=== PATIENT | male | born 1965 | race Caucasian/White ===

== ENCOUNTER 2025-02-07 08:44 | Outpatient (REF) | payer MEDICAID, SELFPAY ==
--- NOTE | ~2025-02-07 | XR_ITS ---
EXAMINATION: XR SHOULDER, RIGHT CLINICAL INFORMATION: right shoulder pain x the last 2 years. COMPARISON: None available. TECHNIQUE: AP external rotation, Grashey, scapular Y, and axillary views of the right shoulder. FINDINGS: No acute cortical disruption or malalignment. Small cyst greater tuberosity right humerus. There is no gross calcifications in the soft tissues. No lytic or blastic lesions. XR/XR shoulder RT min 2V IMPRESSION: Mild degenerative changes without acute fracture or dislocation. Electronically signed by: Carlo Tineo MD 02/07/2025 09:11 AM EDT
--- OUTSIDE RECORDS SUMMARY | 2025-02-07 08:58 | XMS_ITS | Clinical Summary ---
Author Organization [employer] Address [address] [facility] [address] [place] [address] Care Team Providers Care Kitchen Work Supervisor Name Role Phone Cruz Gerardo MD Primary Care Provider [phone] Allergies Active Allergy Reactions Criticality Noted Date Comments Codeine 10/20/2022 Medications Diclofenac Sodium 1 % gelIndications: Chronic right shoulder pain To apply to the affected area 3 times a day 100 g 09/04/2024 Active Active Problems Problem Noted Date Diagnosed Date Arthritis 09/04/2024 Umbilical hernia 09/04/2024 Immunizations Immunization Administration Dates Next Due Influenza injectable quadrivalent preservative f ree 04/16/2020 TD (adult), 2 Lf tetanus tox oid, preservative free, adsorbed 07/28/2005 Tdap 09/04/2024 Social History Tobacco Use Types Packs/Day Years Used Date Smoking Tobacco: Former Cigarettes Smokeless Tobacco: Current Tobacco Cessation:Ready to Q uit: Not Asked; Counseling Given: Not Answered Comments:Quit smoking 19 years ago. Smoked x 20 years 1 ppd. Alcohol Use Standard Drinks/Week Comments Yes 0 (1 standard drink = 0.6 oz pur e alcohol) Alcohol Answer Date Recorded Q1: How often do you have a drink containing alc ohol? 2 09/04/2024 Q2: How many drinks containi ng alcohol do you have on a typical day when you are drinking? 0 09/04/2024 Q3: How often do you have six or more drinks on one occasion? 2 09/04/2024 Depression Answer Date Recorded Patient Health Questionnaire-9 Score 2 09/04/2024 Patient Health Questionnaire-9 Score 2 09/04/2024 Last PHQ-9: Questionnaire Data Not on file 0 09/04/2024 Housing Stability Answer Date Recorded What is your housing situation today? I have pedro sing 08/28/[address] you li ve. Do you have problems with any of the following? None of the above 08/28/2024 Food Insecurity Answer Date Recorded Within the past 12 months, y ou worried that your food would run out before you got money to buy more: Never True 08/28/2024 Within the past 12 months,th e food you bought just didn't last and you didn't have enough money to get more: Never True 09/2024 Transportation Answer Date Recorded In the past 12 months, has l ack of transportation kept you from medical appts, meetings, work or from getting things needed for daily living? No 08/28/2024 Utilities Answer Date Recorded In the past 12 months, has t he electric, gas, oil or water company threatened to shut off services in your home? No 08/28/2024 Depression Answer Date Recorded Patient Health Questionnaire-2 Score 0 09/04/2024 Internet Access Answer Date Recorded Internet Access Q1 Yes 08/28/2024 Internet Access Q2 Not on file 08/28/2024 Sex and Gender Information Value Date Recorded Sex Assigned at Male 04/26/2022 10:21 AM EDT Legal Sex Male 10:21 AM EDT Gender Identity Male 04/26/2022 10:21 AM EDT Sexual Orientation Straight 04/26/2022 10 :21 AM EDT Last Filed Vital Signs Vital Sign Reading Time Taken Comments Blood Pressure 113/70 09/04/2024 1:42 PM EDT Pulse 81 09/04/2024 1:42 PM EDT Temperature 36.6 C (97.9 F) 09/04/2024 1:42 PM EDT Respiratory Rate 20 09/04/2024 1:42 PM EDT Oxygen Saturation 98% 09/04/2024 1:42 PM EDT Inhaled Oxygen Concentration - - Weight 91.2 kg (201 lb) 09/04/2024 1:42 PM EDT Height 179 cm (5' 10.47 ) 09/04/2024 1:42 PM EDT Body Mass Index 28.46 09/04/2024 1:42 PM EDT Plan of Treatment Health Maintenance Due Date Last Done Comments CT Colonography 1966 Colonoscopy 1966 Colorectal Cancer Screening 1966 Dental Oral Exam 1966 Dental Prophylaxis 1966 Dental X-Ray: Bitewings 1966 Dental X-Ray: Full Mouth 1966 FIT DNA/Cologuard 1966 FIT 1966 FOBT 1966 HIV Screening 1966 Lipid Panel 1966 Sigmoidoscopy 1966 Disability Screening 1966 Hepatitis C Screening 1984 Hepatitis A Vaccines (1 of 2 - Risk 2-dose series) 1985 Hepatitis B Vaccines (1 of 3 - 19+ 3-dose series) 1985 Zoster Vaccines (1 of 2) 2016 COVID-19 Vaccine (3 - 2023-2 5 season) 2024 02/21/2021, 01/31/2021 Influenza Vaccine (#1) 2025 04/16/2020 SDOH Screening 08/28/2025 08/28/2024 Alcohol/Substance Use Screening 09/04/2025 09/04/2024 Depression Screening 09/04/2025 09/04/2024, 09/04/2024 Pneumococcal Vaccine: 50+ Years (1 of 1 - PCV) 09/04/2025 Postponed from 2016 (Patient Refused) Tobacco Screening 09/04/2025 09/04/2024 DTaP/Tdap/Td Vaccines (2 - T d or Tdap) 09/04/2034 09/04/2024, 07/28/2005 RSV Patients and Patients Aged 60 years or older (1 - 1-dose 75+ series) 2041 Anal Pap Discontinued HIB Vaccines Aged Out No longer eligi ble based on patient's age to complete this topic HPV Vaccines Aged Out No longer eligi ble based on patient's age to complete this topic IPV Vaccines Aged Out No longer eligi ble based on patient's age to complete this topic Meningococcal B Vaccine Aged Out No l onger eligible based on patient's age to complete this topic Meningococcal Vaccine Aged Out No fani celi eligible based on patient's age to complete this topic RSV under 20 months Aged Out No longe r eligible based on patient's age to complete this topic Rotavirus Vaccines Aged Out No longer eligible based on patient's age to complete this topic Insurance [facility] C3 DENTAL-[facility] MEDICAID STAND ADULT Care Teams Kitchen Work Supervisor Relationship Specialty Start Date End Date Cruz Gerardo MD [address] [place] [address] PCP - General Internal Medicine 09/03/24
== END 2025-02-07 08:45 | disposition home or self-care (01) ==
LOC: HO.HHCX 08:44
PROVIDERS: PCP Internal Medicine; Visit Provider Internal Medicine
DX: M25.511 Pain in right shoulder (principal); G89.29 Other chronic pain
CPT/HCPCS: 73030

== ENCOUNTER → 2025-02-07 08:49 | Outpatient (BNV) | payer MEDICAID, SELFPAY | PROVIDERS: PCP Internal Medicine; Visit Provider Radiology Diagnostic Radiology | DX: M25.511 Pain in right shoulder (principal) | CPT/HCPCS: 73030 ==

== ENCOUNTER 2025-04-12 08:41 | Outpatient (REF) | payer MEDICAID, SELFPAY ==
--- OUTSIDE RECORDS SUMMARY | 2025-04-12 09:06 | XMS_ITS | Clinical Summary ---
Author Organization [facility] Address [address] [facility] [address] [place] [address] Care Team Providers Care Mds Manager Name Role Phone Cruz Gerardo MD Primary Care Provider Allergies Active Allergy Reactions Criticality Noted Date Comments Codeine 10/20/2022 Medications Diclofenac Sodium 1 % gelIndications: Chronic right shoulder pain To apply to the affected area 3 times a day 100 g 5 04/04/20 25 Discontinu ed(Therapy completed) Hospital, Clinic, or Other Facility Administered Medication Ordered Dose Route Frequency Start Date End Date Status triamcinolone acetonide (Kenalog-40) injection 80 mgIndications:Chronic right shoulder pain 80 mg IX Once 02/27/2025 Active lidocaine (Xylocaine) 1 % injection 20 mgIndications:Chronic right shoulder pain 20 mg IJ Once 02/27/2025 Active Active Problems Problem Noted Date Diagnosed Date Arthritis 09/04/2024 Umbilical hernia 09/04/2024 Encounters Date Type Department Care Team Description 04/04/2025 1:15 PM EDT Office Visit [facility] [address] [place] [address] Cruz Gerardo MD Transaminitis (Primary Dx); Annual physical exam; Chronic pain of both feet; Pain in other joint; Other irritable bowel syndrome; Screening for colon cancer; Other hemorrhoids; Bunion, right foot; Umbilical hernia without obstruction and without gangrene; Encounter for immunization 04/04/2025 Travel 04/03/2025 Telephone [facility] [address] [place] [address] Cruz Gerardo MD Chart Prep 04/01/2025 Travel 03/28/2025 Patient Outreach [facility] [address] [place] [address] Cruz Gerardo MD Pre-visit Planning (Pre visit planning LVM ) 02/27/2025 9:00 AM EDT Procedure Visit [facility] [address] [place] [address] Shannan Son MD Chronic right shoulder pain (Primary Dx); Umbilical hernia without obstruction and without gangrene 02/27/2025 Travel 02/20/2025 Travel 02/13/2025 Telephone [facility] [address] [place] [address] Cruz Gerardo MD TC- joint injection 02/08/2025 Telephone [facility] [address] [place] [address] Cruz Gerardo MD Results; Referral from Last 3 Months Immunizations Immunization Administration Dates Next Due Influenza injectable quadrivalent preservative f ree 04/16/2020 Influenza, seasonal, injectable, preservative fr ee 04/04/2025 TD (adult), 2 Lf tetanus tox oid, preservative free, adsorbed 07/28/2005 Tdap 09/04/2024 Family History Medical History Relation Name Comments Neuropathy Father Relation Name Status Comments Father Social History Tobacco Use Types Packs/Day Years [...] your housing situation today? I have pedro parra 08/28/[address] you li [...] Sign Reading Time Taken Comments Blood Pressure 117/70 04/04/2025 1:13 PM EDT Pulse 82 04/04/2025 1:13 PM EDT Temperature 36.2 C (97.1 F) 02/27/2025 9:17 AM EDT Respiratory Rate 20 04/04/2025 1:13 PM EDT Oxygen Saturation 98% 04/04/2025 1:13 PM EDT Inhaled Oxygen Concentration - - Weight 89.8 kg (198 lb) 04/04/2025 1:13 PM EDT Height 178.4 cm (5' 10.25 ) 04/04/2025 1:13 PM E DT Body Mass Index 28.21 04/04/2025 1:13 PM EDT Plan of Treatment Health Maintenance Due Date Last Done Comments CT Colonography 1966 Colonoscopy 1966 Colorectal Cancer Screening 1966 Dental Oral Exam 1966 Dental Prophylaxis 1966 Dental X-Ray: Bitewings 1966 Dental X-Ray: Full Mouth 1966 FIT DNA/Cologuard 1966 FIT 1966 FOBT 1966 HIV Screening 1966 Lipid Panel 1966 Sigmoidoscopy 1966 Hepatitis C Screening 1984 Hepatitis A Vaccines (1 of 2 - Risk 2-dose series) 1985 Hepatitis B Vaccines (1 of 3 - 19+ 3-dose series) 1985 Zoster Vaccines (1 of 2) 2016 SDOH Screening 08/28/2025 08/28/2024 Alcohol/Substance Use Screening 09/04/2025 09/04/2024 Depression Screening 09/04/2025 09/04/2024, 09/04/2024 Pneumococcal Vaccine: 50+ Years (1 of 1 - PCV) 09/04/2025 Postponed from 2016 (Patient Refused) Disability Screening 02/20/2026 02/20/2025 COVID-19 Vaccine (3 - 2024-2 6 season) 2026 02/21/2021, 01/31/2021 Postponed from 02/25/2025 (Patient Refused) Tobacco Screening 04/04/2026 04/04/2025 DTaP/Tdap/Td Vaccines (2 - T d or Tdap) 09/04/2034 09/04/2024, 07/28/2005 RSV Patients and Patients Aged 60 years or older (1 - 1-dose 75+ series) 2041 Influenza Vaccine Completed 04/04/2025, 04/16/2020 Anal Pap Discontinued HIB Vaccines Aged Out [...] on patient's age to complete this topic Procedures Procedure Name Priority Date/Time Associated Diagnosis Comments ID ARTHROCENTESIS ASPIR&/INJ MAJOR JT/BURSA W/O US Routine 02/27/2025 9:40 AM EDT Chronic right shoulder pain XR SHOULDER 2+ VIEWS RIGHT Routine 02/07/2025 8:13 AM EDT Chronic right shoulder pain from Last 3 Months Results * ID ARTHROCENTESIS ASPIR&/INJ MAJOR JT/BURSA W/O US (02/27/2025 9:40 AM EDT) Narrative Shannan Son MD - 02/27/2025 9:40 AM EDT Shannan Son MD 02/27/2025 9:41 AM Arthrocentesis Date/Time: 02/27/2025 9:40 AM Performed by: Shannan Son MD Authorized by: Shannan Son MD Consent: Consent obtained: Verbal and written Consent given by: Patient Risks, benefits, and alternatives were discussed: yes Risks discussed: Pain Alternatives discussed: Referral [place] protocol: Procedure explained and questions answered to patient or proxy's satisfaction: yes Relevant documents present and verified: yes Test results available: yes Imaging studies available: yes Required blood products, implants, devices, and special equipment available: yes Site/side marked: yes Immediately prior to procedure, a time out was called: yes Patient identity confirmed: Verbally with patient Location: Location: Shoulder Shoulder: R glenohumeral Anesthesia: Anesthesia method: Topical application Procedure details: Preparation: Patient was prepped and draped in usual sterile fashion Needle gauge: 22 G Ultrasound guidance: no Approach: Posterior Steroid injected: yes Specimen collected: no Post-procedure details: Dressing: Adhesive bandage Procedure completion: Tolerated us Shannan Son MD IN CLINIC/BEDSIDE ORDERABLES Fin al Result * XR Shoulder 2+ Views Right (02/07/2025 8:13 AM EDT) Anatomical Region Laterality Modality Upper Extremities, Shoulder Right Radi ographic Imaging 02/07/2025 8:13 AM EDT Meghana 02/07/2025 9:14 AM EDT [facility] [address] [place] [address] XRay Report Signed Patient: Andrea Valverde MR#: [id number] : 1965 Acct:[id number] Age/Sex: 59 / M ADM Date: 02/07/25 [facility] Att[facility] Dr: Cruz Gerardo MD Ordering Physician: Cruz Gerardo MD Date of Service: 02/07/25 Procedure(s): XR shoulder RT min 2V Accession Number(s): [id number] cc: Cruz Gerardo MD EXAMINATION: XR SHOULDER, RIGHT CLINICAL INFORMATION: right shoulder pain x the last 2 years. COMPARISON: None available. TECHNIQUE: AP external rotation, Grashey, scapular Y, and axillary views of the right shoulder. FINDINGS: No acute cortical disruption or malalignment. Small cyst greater tuberosity right humerus. There is no gross calcifications in the soft tissues. No lytic or blastic lesions. XR/XR shoulder RT min 2V IMPRESSION: Mild degenerative changes without acute fracture or dislocation. Electronically signed by: Carlo Tineo MD 02/07/2025 09:11 AM EDT Dictated By: Carlo Cramer MD Signed By: <Electronically signed by Carlo Graff MD in OV> 02/07/25 0911 DD/ 0813 TD/TT: 02/07/25 0900 Outreach Consultant: Procedure Note Donotuseinterpreter, Image - 02/07/[address] [address] XRay Report Signed Patient: Andrea Valverde MMR#: [id number] : 1965Acct:[id number] Age/Sex: 59 / MADM Date: 02/07/25 Loc: HO.[facility] Attending Dr: Cruz Gerardo MD Ordering Physician: Cruz Gerardo MD Date of Service: 02/07/25 Procedure(s): XR shoulder RT min 2V Accession Number(s): [id number] cc: Cruz Gerardo MD EXAMINATION: XR SHOULDER, RIGHT CLINICAL INFORMATION: right shoulder pain x the last 2 years. COMPARISON: None available. TECHNIQUE: AP external rotation, Grashey, scapular Y, and axillary views of the right shoulder. FINDINGS: No acute cortical disruption or malalignment. Small cyst greater tuberosity right humerus. There is no gross calcifications in the soft tissues. No lytic or blastic lesions. XR/XR shoulder RT min 2V IMPRESSION: Mild degenerative changes without acute fracture or dislocation. Electronically signed by: Carlo Tineo MD 02/07/2025 09:11 AM EDT RP Dictated By: Carlo Cramer MD Signed By: <Electronically signed by Carlo Graff MDin OV> 02/07/25 09 DD/ 08 TD/TT: 02/07/25 0900 Outreach Consultant: Cruz Gerardo MD IMG XR PROCEDURES Final Res ult from Last 3 Months Insurance [facility] C3 DENTAL-[facility] MEDICAID STAND ADULT Care Teams Mds Manager Relationship Specialty Start Date End Date Cruz Gerardo MD [address] [place], [place] [address] [address] PCP - General Internal Medicine 09/03/24
--- OUTSIDE RECORDS SUMMARY | 2025-04-12 09:06 | XMS_ITS | Encounter Summary ---
Author Organization [employer] [facility] Address [address] [facility] [address] [place] [address] Care Team Providers Care Two Way Radio Installer Name Role Phone Libertad Palafox MD Primary Care Provider [phone] Cruz Gerardo MD Primary Care Provider [phone] Encounter Details Date Type Department Care Team (Latest Contact Info) Description 12/18/2021 Abstract [facility] CONVERSIONS Dental, Provider, DDS Social History Tobacco Use Types Packs/Day Years Used Date Smoking Tobacco: Never Assessed Sex and Gender Information Value Date Recorded Sex Assigned at Male 04/26/2022 10:21 AM EDT Legal Sex Male 10:21 AM EDT Gender Identity Male 04/26/2022 10:21 AM EDT Sexual Orientation Straight 04/26/2022 10 :21 AM EDT documented as of this encounter Plan of Treatment Not on file documented as of this encounter Visit Diagnoses Not on filedocumented in this encounter Care Teams Two Way Radio Installer Relationship Specialty Start Date End Date Libertad Palafox MD [address] [place] [address] PCP - General Family Medicine 10/09/21 09/02/24 Cruz Gerardo MD [address] [place] [address] PCP - General Internal Medicine 09/03/24 documented as of this encounter
[2025-04-12 16:29] LABS: Folate 5.9 ng/mL (> or = 4.0); Vitamin B12 281 pg/mL (200-900)
[2025-04-13 10:41] LABS: HBS Num1 1.11 mIU/mL (0-7.99); HBc Num1 0.07 S/CO (0.00-0.79); HBsAGNum1 0.66 S/CO (0.00-0.99); HIV Num 1 0.05 S/CO (0.00-0.99); Hepatitis A Antibody IgM 0.20 Index (0-0.79); Hepatitis B Surface Antigen Negative (Negative); ~HepC Num1 0.12 S/CO (0.00-0.79); ~Hepatitis A Antibody IgM Nonreactive (Nonreactive); ~Hepatitis B Surface Antibody NONREACTIVE (Nonreactive); ~Hepatitis C Antibody Nonreactive (Nonreactive)
[2025-04-21 15:09] LABS: Anti Nuclear Antibody Pattern Nuclear, Homogeneous; Anti Nuclear Antibody Screen POSITIVE (NEGATIVE); Anti Nuclear Antibody Titer 1:80 titer
== END 2025-04-12 08:42 | disposition home or self-care (01) ==
LOC: HO.CHCLDS 08:41
PROVIDERS: Visit Provider Internal Medicine
DX: Z00.00 Encounter for general adult medical examination without abnormal findings (principal); R74.01 Elevation of levels of liver transaminase levels; M79.672 Pain in left foot; M79.671 Pain in right foot; G89.29 Other chronic pain
CPT/HCPCS: 36415; 82607; 82746; 85652; 86038; 86039; 86140; 86431; 86704; 86706; 86709; 86803; 87340; 87389

== ENCOUNTER 2025-05-07 09:26 | Outpatient (AMB) | payer MEDICAID, SELFPAY ==
--- NOTE | 2025-05-07 09:33 | A.OFFVIS_ITS ---
Vital Signs 3 05/07/25 09:39 Height 5 ft 11 in Weight 197 lb 4 oz BMI 27.5 BP 119/76 Blood Pressure Location Lt brachial Position Sitting Pulse 94 Intake Visit Reasons: Umbilical hernia Intake Note: Patient is seen in office for evaluation of an umbilical hernia. Pt c/o: onset 2 yrs, increase in size, painful, worse when coughing, denies n/v/d/c Imaging:Zero Regulatory Affairs Director Required: No Accompanied by: Self / Same As Patient Allergies codeine (CODEINE) Allergy (Unknown, Verified 05/07/25 09:38) NAUSEA & VOMITING Medication List - Last Reconciled 05/07/25 by Hadley John MD No Known Home Meds HPI Comments Details: 60-year-old male patient presenting for evaluation of a enlarging umbilical hernia. He 1st noted several years ago and was initially quite small and seemed to develop after coughing. Over time the lump has increased in size in his now causing some discomfort. He was initially able to reduce the hernia easily but now is becoming more difficult to reduce. He denies any nausea, vomiting, fever or chills. He is currently not working and has avoided running or sit-ups due to the hernia. He denies any previous surgery in the umbilical region. [facility] Social History Alcohol intake: current Alcohol intake frequency: holidays/special occasions only Patient Tobacco Use Status: Never used Tobacco Review of Systems Const All systems reviewed & are unremarkable except as noted in HPI and below Physical Exam Vital Signs: Last Vital Signs Pulse 94 05/07/25 09:39 BP 119/76 05/07/25 09:39 BMI result Body Mass Index 27.5 Const General: cooperative and no acute distress Nutritional Appearance: well nourished Orientation/consciousness: patient oriented x3 Limitations: no limitations HEENT Head: Yes normocephalic and Yes atraumatic Ears: hearing grossly normal bilaterally Resp Effort & Inspection: normal respiratory effort, no audible wheezes, no cough and no respiratory distress Cardio Jugular venous distension: no JVD GI Other: 5 cm umbilical hernia which increases in size with Valsalva maneuvers but then reduces with light pressure. There was minimal tenderness to palpation. No redness is noted in the overlying skin. Inspection: Yes normal to inspection Abdomen image: 2 1. Umbilical hernia, 5 cm, reducible. Skin Other: Warm, dry, no rash Neuro General: patient oriented x3 Extrem General: Yes no clubbing, cyanosis or edema Assessment & Plan Assessment & Plan (1) Umbilical hernia without mention of obstruction or gangrene: Code(s): K42.9 - Umbilical hernia without obstruction or gangrene Category: Medical Qualifiers: Obstruction and gangrene presence: without obstruction or gangrene Q ualified Code(s): K42.9 - Umbilical hernia without obstruction or gangrene Plan 60-year-old male patient presenting with a reducible large umbilical hernia which is now symptomatic. I recommended repair of this umbilical hernia with mesh and after discussion of the procedure, risks, and alternatives, he consents to the surgery. He will be scheduled as a short-stay surgery. Coding Level of Care Code New Pt Level 4 (97752) Diagnoses Umbilical hernia without obstruction and without gangrene K42.9 Obstruction and gangrene presence: without obstruction or gangrene
[2025-05-07 09:39] VITALS: BP 119/76; PULSE 94; BMI 27.5
--- OUTSIDE RECORDS SUMMARY | 2025-05-07 10:17 | XMS_ITS | Clinical Summary ---
Author Organization [facility] Address [address] [facility] 7t [place] [address] Care Team Providers Care Laboratory Administrative Director Name Role Phone Cruz Gerardo MD Primary Care Provider [phone] Allergies Active Allergy Reactions Criticality Noted Date Comments Codeine 10/20/2022 Medications celecoxib (CeleBREX) 100 MG capsuleIndicati ons:Pain in other joint Take 1 capsule (100 mg) by mouth 2 times daily. 60 capsule 04/12/2025 Active Hospital, Clinic, or Other Facility Administered Medication [...] Encounters Date Type Department Care Team Description 04/15/2025 Results Follow-Up [facility] [address] [place] [address] Lay Chowdhury RN Sed Rate by Modified Westergren, C-reactive Protein, Vitamin B12/Folate, Serum Panel, Additional followed-up results: 4 04/12/2025 Orders Only [facility] [address] [place] [address] Cruz Gerardo MD Pain in other joint (Primary Dx) 04/04/2025 1:15 PM EDT Office Visit [facility] [address] [place], [place] [phone] Cruz Gerardo MD Transaminitis (Primary Dx); Annual physical exam; Chronic pain of both feet; Pain in other joint; Other irritable bowel syndrome; Screening for colon cancer; Other hemorrhoids; Bunion, right foot; Umbilical hernia without obstruction and without gangrene; Encounter for immunization 04/04/2025 Travel 04/03/2025 Telephone [facility] [address] [place] [address] Cruz Gerardo MD Chart Prep 04/01/2025 Travel 03/28/2025 Patient Outreach [facility] MED[facility] [address] [place] [address] Cruz Gerardo MD Pre-visit Planning (Pre visit planning LVM ) 02/27/2025 9:00 AM EDT Procedure Visit [facility] [address] [place] [address] Shannan Son MD Chronic right shoulder pain (Primary Dx); Umbilical hernia without obstruction and without gangrene 02/27/2025 Travel 02/20/2025 Travel 02/13/2025 Telephone [facility] [address] [place] [address] Cruz Gerardo MD TC- joint injection 02/08/2025 Telephone [facility] [address] [place] [address] Cruz Gerardo MD Results; Referral from Last [...] FIT DNA/Cologuard 1965 FIT 1965 FOBT 1965 Lipid Panel 1965 Sigmoidoscopy 1966 Hepatitis A Vaccines (1 of 2 - [...] series) 2041 Influenza Vaccine Completed 04/04/2025, 04/16/2020 HIV Screening Completed 04/12/2025 Hepatitis C Screening Completed 04/12/2025 Anal Pap Discontinued HIB Vaccines Aged Out [...] Procedure Name Priority Date/Time Associated Diagnosis Comments RHEUMATOID FACTOR Routine 04/12/2025 8:4 4 AM EDT Pain in other joint VITAMIN B12/FOLATE, SERUM PANEL Routine 04/12/2025 8:44 AM EDT Chronic pain of both feet HIV 1/2 ANTIGEN/ANTIBODY, FOURTH GENERATION W/RFL Routine 04/12/2025 8:44 AM EDT Transaminitis Annual physical exam HEPATITIS PANEL, GENERAL Routine 04/12/2025 8:44 AM EDT Transaminitis Annual physical exam C-REACTIVE PROTEIN Routine 04/12/2025 8: 44 AM EDT Transaminitis Annual physical exam TALIA SCREEN, IFA, W/REFL TITER AND PATTERN Routine 04/12/2025 8:44 AM EDT Transaminitis Annual physical exam SED RATE BY MODIFIED WESTERGREN Routine 04/12/2025 8:44 AM EDT Transaminitis Annual physical exam PA ARTHROCENTESIS ASPIR&/INJ MAJOR JT/BURSA W/O US Routine 02/27/2025 9:40 AM EDT Chronic right shoulder pain XR SHOULDER 2+ VIEWS RIGHT Routine 02/07/2025 8:13 AM EDT Chronic right shoulder pain from Last 3 Months Results * Vitamin B12/Folate, Serum Panel (04/12/2025 8:44 AM EDT) Vitamin B12 281 200 - 900 pg/mL [facility] Comment:NORMAL 200-900 PG/ML INDETERMINATE 160-199 PG/ML DEFICIENT < 160 PG/ML Folate 5.9 > or = 4.0 ng/mL [facility] Comment:Reference Values:> o r = 4.0 ng/mL< 4.0 ng/mL suggests folate deficiency Methotrexate, aminopterin and folinic acid(leucovorin) are chemotherapeutic agents whose molecularstructures are similar to folate; therefore, the Architectfolate assay cannot be used for patients using these drugs. Blood Venous blood specimen / Unknown 04/12/2025 8:44 AM EDT 04/12/2025 2:38 PM EDT us Cruz Gerardo MD LAB BLOOD ORDERABLES Final Result Performing Organization Address [facility] Co de Phone Number [facility] [address] [place] [phone] * Hepatitis Panel, General (04/12/2025 8:44 AM EDT) Pathologist [facility] Hepatitis A IgM Nonreactive Nonreactive [facility] Comment:IgM antibodies to PRINCE V not detected; does not exclude earlyacute or recovered HAV infection. ~Hepatitis B Surface Antibody NONREACTIVE Nonreactive [facility] Comment:Nonreactive: < 8.00 mIU/mL Hepatitis B Core Antibody Nonreactive Nonreactive [facility] Hepatitis C Antibody Nonreactive Nonreactive [facility] Comment:Antibodies to HCV no t detected; does not exclude early acuteHCV infection. Hepatitis B Surface Ag Negative Negative [facility] Blood Venous blood specimen / Unknown 04/12/2025 8:44 AM EDT 04/12/2025 2:38 PM EDT us Cruz Gerardo MD LAB BLOOD ORDERABLES Final Result Performing Organization Address City/[facility]/ZIP Co de Phone Number [facility] [address] [place] [phone] [phone] * HIV-1/2 Antigen and Antibodies, Fourth Generation, with Reflexes (04/12/2025 8:44 AM EDT) HIV AB/AG Nonreactive Nonreactive [facility] Comment:HIV-1 p24 Ag and/or HIV-1/HIV-2 Ab not detected.A test result that is nonreactive does not exclude thepossibility of exposure to or infection with HIV-1 and/orHIV-2. Nonreactive results in this assay for individualswith prior exposure to HIV-1 and/or HIV-2 may be due toantigen and antibody levels that are below the limit ofdetection of this assay.The Ranku HIV Ag/Ab Combo assay result andsupplemental assay results should be interpreted inconjunction with the patient's clinical presentation,history and other laboratory results. If the results areinconsistent with clinical evidence, additional testing issuggested to confirm the result. Blood Venous blood specimen / Unknown 04/12/2025 8:44 AM EDT 04/12/2025 2:38 PM EDT us Cruz Gerardo MD LAB BLOOD ORDERABLES Final Result Performing Organization Address [facility] Co de Phone Number [facility] [address] [place] [phone] * (ABNORMAL) Sed Rate by Modified Westergren (04/12/2025 8:44 AM EDT) Erythrocyte Sedimentation Rate 16(H) 0 - 15 MM/HR [facility] Comment:Patients with polycy themia and many hemoglobin abnormalitiesmay have depressed sed rates whereas patients with anemiamay have elevated sed rates. Blood Venous blood specimen / Unknown 04/12/2025 8:44 AM EDT 04/12/2025 2:38 PM EDT Cruz Gerardo MD LAB BLOOD ORDERABLES Final Result Performing Organization Address [facility] Co de Phone Number [facility] [address] [place] [phone] * Rheumatoid Factor (04/12/2025 8:44 AM EDT) Pathologist [facility] Rheumatoid Factor <13.0 <15.0 IU/mL [facility] Blood Venous blood specimen / Unknown 04/12/2025 8:44 AM EDT 04/12/2025 2:38 PM EDT Cruz Gerardo MD LAB BLOOD ORDERABLES Final Result Performing Organization Address [facility] de Phone Number [facility] [address] [place] [phone] * (ABNORMAL) C-reactive Protein (04/12/2025 8:44 AM EDT) Pathologist [facility] C Reactive Protein 0.55(H) < or = 0.50 mg/dL [facility] Blood Venous blood specimen / Unknown 04/12/2025 8:44 AM EDT 04/12/2025 2:38 PM EDT Cruz Gerardo MD LAB BLOOD ORDERABLES Final Result Performing Organization Address [facility] de Phone Number [facility] [address] [place] [phone] * (ABNORMAL) TALIA Screen,IFA, with Reflex to Titer and Pattern (04/12/2025 8:44 AM EDT) Pathologist [facility] Anti Nuclear Antibody Screen POSITIV E(A) NEGATIVE [facility] Comment:TALIA IFA is a first l ine screen for detecting thepresence of up to approximately 150 autoantibodies invarious autoimmune diseases. A positive TALIA IFA resultis suggestive of autoimmune disease and reflexes totiter and pattern. Further laboratory testing may beconsidered if clinically indicated.For additional information, please refer [email or web address]/[email or web address](This link is being provided for informational/educational purposes only.) TALIA Titer 1:80(A) titer [facility] Comment:A low level TALIA tite r may be present in pre-clinicalautoimmune diseases and normal individuals. Reference Range <1:40 Negative 1:40-1:80 Low Antibody Level >1:80 Elevated Antibody Level TALIA Pattern Nuclear , Homogen eous(A) [facility] Comment:Homogeneous pattern is associated with systemic lupuserythematosus (SLE), drug-induced lupus and juvenileidiopathic arthritis.AC-1: HomogeneousInternational Consensus on TALIA Patterns(https://doi.org/10.1515/tgzc-7084-0167)THIS TEST WAS PERFORMED AT:[facility] [place] [phone] KLINE MD TALIA Titer 2 TNP [facility] TALIA Pattern 2 TNP [facility] TALIA TITER 3 TNP [facility] TALIA PATTERN 3 TNP [facility] Blood Venous blood specimen / Unknown 04/12/2025 8:44 AM EDT 04/12/2025 2:38 PM EDT Cruz Gerardo MD LAB BLOOD ORDERABLES Final Result [facility] [address] [place] [phone] [phone] * PA ARTHROCENTESIS ASPIR&/INJ MAJOR JT/BURSA W/O US (02/27/2025 9:40 AM EDT) Narrative Shannan Son MD - 02/27/2025 9:40 AM EDT Shannan Son MD 02/27/2025 9:41 AM Arthrocentesis Date/Time: 02/27/2025 9:40 AM Performed by: Shannan Son MD Authorized by: Shannan Son MD Consent: Consent obtained: Verbal and written Consent given by: Patient Risks, benefits, and alternatives were discussed: yes Risks discussed: Pain Alternatives discussed: Referral Sayner protocol: Procedure explained and questions answered to [...] Radi ographic Imaging 02/07/2025 8:13 AM EDT Narrative 02/07/2025 9:14 [place] [address] XRay Report Signed Patient: Andrea Valverde MR#: [id number] : 1965 Acct:[id number] Age/Sex: 59 / M ADM Date: 02/07/25 Loc: HO.HHCX Attending Dr: Cruz Gerardo MD Ordering Physician: Cruz Gerardo MD Date of Service: 02/07/25 Procedure(s): XR shoulder RT min 2V Accession Number(s): [id number] cc: Cruz Gerardo MD EXAMINATION: XR SHOULDER, [...] signed by Carlo Graff MD in OV> 02/07/25910 DD/ 2 TD/TT: 02/07/25899 Torch Brazer: Procedure Note Donotuseinterpreter, Image - 02/07/[address] [address] XRay Report Signed Patient: Andrea Valverde MMR#: [id number] : 1965Acct:[id number] Age/Sex: 59 / MADM Date: 02/07/25 Loc: HO.HHCX Attending Dr: Cruz Gerardo MD Ordering Physician: Cruz Gerardo MD Date of Service: 02/07/25 Procedure(s): XR shoulder RT min 2V Accession Number(s): [id number] cc: Cruz Gerardo MD EXAMINATION: XR SHOULDER, [...] <Electronically signed by Carlo Graff MDin OV> 02/07/25910 DD/ 2 TD/TT: 02/07/25 09 Torch Brazer: Cruz Gerardo MD IMG XR PROCEDURES Final Res ult from Last 3 Months Insurance [place] [facility] MEDICAID STAND ADULT Care Teams Laboratory Administrative Director Relationship Specialty Start Date End Date Cruz Gerardo MD [address] [place], [place] [address] [address] PCP - General Internal Medicine 09/03/24
--- OUTSIDE RECORDS SUMMARY | 2025-05-07 10:17 | XMS_ITS | Encounter Summary ---
Author Organization [employer] Address [address] [place] [address] [address] [address] Care Team Providers Care Clinical Nursing Manager Name Role Phone Cruz Gerardo MD Primary Care Provider [phone] Reason for Referral * Consultation (Routine) - Authorized Specialty Diagnoses / Procedures Referred By Contwhitney t Referred To Contact Rheumatology Diagnoses Pain in other joint Cruz Gerardo MD [address] [place] [address] Phone: tel: fax: [facility] [address] [place] [address] Phone: tel: fax: Referral ID Status Reason Start Date Expiration Date Visits Requested Visits Authorized [id number] Authorized Specialty Services Required 2026 1 1 Encounter Details Date Type Department Care Team ([facility] st Contact Info) Description 04/12/2025 Orders Only [facility] [address] [place] [address] Cruz Gerardo MD [address] [place] [address] Pain in other joint (Primary Dx) Social History Tobacco Use Types Packs/Day Years Used Date Smoking Tobacco: Former Cigarettes Smokeless Tobacco: Current Comments:Quit smoking 19 yea rs ago. Smoked x 20 years 1 ppd. [...] as of this encounter Plan of Treatment Scheduled Referrals Name Type Priority Associated Diagnoses Order Schedule Referral to Rheumatology Outpatient Referral Routine Pain in other joint Expected: 2025 (Approximate), Expires: 2026 documented as of this encounter Visit Diagnoses Diagnosis Pain in other joint- Primary documented in this encounter Additional Health Concerns Assessment Noted Time PHQ-9 Depression Total Score: 2 09/05/19 1:44 PM EDT documented as of this encounter Care Teams Clinical Nursing Manager Relationship Specialty Start Date End Date Cruz Gerardo MD [address] [place] [phone] PCP - General Internal Medicine 09/03/24 documented as of this encounter
--- OUTSIDE RECORDS SUMMARY | 2025-05-07 10:17 | XMS_ITS | Encounter Summary ---
Author Organization [facility] Address [address] [facility] 7t [place] [address] Care Team Providers Care Costuming Supervisor Name Role Phone Libertad Palafox MD Primary Care Provider [phone] Cruz Gerardo MD Primary Care Provider [phone] Encounter Details Date Type Department Care Team (Latest Contact Info) Description 12/18/2021 Abstract [facility] CONVERSIONS Dental, Provider, DDS Social History Tobacco [...] on filedocumented in this encounter Care Teams Costuming Supervisor Relationship Specialty Start Date End Date Libertad Palafox MD [address] [place] [address] PCP - General Family Medicine 10/09/21 09/02/24 Cruz Gerardo MD [address] [place] [address] PCP - General Internal Medicine 09/03/24 documented as of this encounter
== END 2025-05-07 09:58 | disposition home or self-care (01) ==
LOC: HO.HGS 09:27
PROVIDERS: PCP Internal Medicine; Visit Provider Surgery
DX: K42.9 Umbilical hernia without obstruction or gangrene (principal)
CPT/HCPCS: 99204

== ENCOUNTER → 2025-05-07 09:26 | Outpatient (BNVA) | payer MEDICAID, SELFPAY | PROVIDERS: PCP Internal Medicine; Visit Provider Surgery | DX: Z01.818 Encounter for other preprocedural examination (principal); K42.9 Umbilical hernia without obstruction or gangrene | CPT/HCPCS: 99202 ==

== ENCOUNTER 2025-05-10 09:27 | Outpatient (REF) | payer MEDICAID, SELFPAY ==
--- OUTSIDE RECORDS SUMMARY | 2025-05-10 10:26 | XMS_ITS | Clinical Summary ---
Author Organization [address] [facility] Address [address] [place] [address] Phone Care Team Providers Care Home Office Claims Examiner Name Role Phone Cruz Gerardo MD Primary Care Provider [phone] Social History Tobacco Use Types Packs/Day Years Used Date Smoking Tobacco: Never Smokeless Tobacco: Never Alcohol Use Standard Drinks/Week Comments Never 0 (1 standard drink = 0.6 oz pur e alcohol) Sex and Gender Information Value Date Recorded Sex Assigned at Not on file Legal Sex Male 3:49 AM EST Gender Identity Not on file Sexual Orientation Not on file Obstetrics History Last Filed Vital Signs Vital Sign Reading Time Taken Comments Blood Pressure - - Pulse - - Temperature - - Respiratory Rate - - Oxygen Saturation - - Inhaled Oxygen Concentration - - Weight 86.2 kg (190 lb) 12/17/2021 9:26 AM EDT Height 180.3 cm (5' 11 ) 12/17/2021 9:26 AM EDT Body Mass Index 26.5 12/17/2021 9:26 AM EDT Plan of Treatment Upcoming Encounters Date Type Department Care Team (Late st Contact Info) Description 07/10/2025 9:45 AM EST Office Visit [facility] [place] [address] [phone] Piero Banerjee DPM [address] [address] Health Maintenance Due Date Last Done Comments Colorectal Cancer Screening: Colonoscopy 1965 Hepatitis B Vaccines (1 of 3 - 19+ 3-dose series) 1985 DTaP,Tdap,and Td Vaccines (2 - Td or Tdap) 07/28/2015 07/28/2005 Pneumococcal Vaccine: 50+ Ye ars (1 of 1 - PCV) 2016 Zoster Vaccines (1 of 2) 2016 Depression Screening 06/27/2024 COVID-19 Vaccine (1 - 2024-2 6 season) 2025 Influenza Vaccine (#1) 2025 Cholesterol Screening (Lipid Panel) 04/10/2025 HIV Screening 04/10/2025 Hepatitis C Screening 04/10/2025 Social Influencers of Health Screening 04/10/2025 RSV Immunization Adult Patie nts (1 - 1-dose 75+ series) 2041 HIB Vaccines Aged Out No longer eligi ble based on patient's age to complete this topic HPV Vaccines Aged Out No longer eligi ble based on patient's age to complete this topic Hepatitis A Vaccines Aged Out No long er eligible based on patient's age to complete this topic IPV Vaccines Aged Out No longer eligi ble based on patient's age to complete this topic MMR Vaccines Aged Out No longer eligi ble based on patient's age to complete this topic Meningococcal ACWY Vaccine Aged Out N o longer eligible based on patient's age to complete this topic Meningococcal B Vaccine Aged Out No l onger eligible based on patient's age to complete this topic RSV Immunization Patients Un simran 20 months Aged Out No longer eligible b ased on patient's age to complete this topic Varicella Vaccines Aged Out No longer eligible based on patient's age to complete this topic Insurance [place] Care Teams Home Office Claims Examiner Relationship Specialty Start Date End Date Cruz Gerardo MD [address] [place] [phone] PCP - General Internal Medicine 04/10/25
--- OUTSIDE RECORDS SUMMARY | 2025-05-10 10:26 | XMS_ITS | Clinical Summary ---
Author Organization [employer] [facility] Address [address] [facility] 7t [place] [address] Care Team Providers Care Outsewer Name Role Phone Cruz Gerardo MD Primary [...] Department Care Team Description 04/15/2025 Results Follow-Up [facility] [address] [place] [address] Lay Chowdhury RN Sed Rate by Modified Westergren, C-reactive Protein, Vitamin B12/Folate, Serum Panel, Additional followed-up results: 4 04/12/2025 Orders Only [facility] [address] [place] [address] Cruz Gerardo MD Pain in other joint (Primary Dx) 04/04/2025 1:15 PM EDT Office Visit [facility] [address] [place], [place] [phone] Cruz Gerardo MD Transaminitis (Primary Dx); Annual physical exam; Chronic pain of both feet; Pain in other joint; Other irritable bowel syndrome; Screening for colon cancer; Other hemorrhoids; Bunion, right foot; Umbilical hernia without obstruction and without gangrene; Encounter for immunization 04/04/2025 Travel 04/03/2025 Telephone [facility] [address] [place] [address] Cruz Gerardo MD Chart Prep 04/01/2025 Travel 03/28/2025 Patient Outreach [facility] [address] [place] [address] Cruz Gerardo MD Pre-visit Planning (Pre visit planning LVM ) 02/27/2025 9:00 AM EDT Procedure Visit [facility] [address] [place] [address] Shannan Son MD Chronic right shoulder pain (Primary Dx); Umbilical hernia without obstruction and without gangrene 02/27/2025 Travel 02/20/2025 Travel 02/13/2025 Telephone [facility] [address] [place] [address] Cruz Gerardo MD TC- joint injection 02/08/2025 Telephone [facility] [address] [place] [address] Cruz Gerardo MD Results; Referral from Last [...] 8:44 AM EDT Transaminitis Annual physical exam CA ARTHROCENTESIS ASPIR&/INJ MAJOR JT/BURSA W/O US Routine 02/27/2025 9:40 AM EDT Chronic right shoulder pain XR SHOULDER 2+ VIEWS RIGHT Routine 02/07/2025 8:13 AM EDT Chronic right shoulder pain from Last 3 Months Results * Vitamin B12/Folate, Serum Panel (04/12/2025 8:44 AM EDT) Vitamin B12 281 200 - 900 pg/mL [facility] Comment:NORMAL 200-900 PG/ML INDETERMINATE 160-199 PG/ML DEFICIENT < 160 PG/ML Folate 5.9 > or = 4.0 ng/mL [facility] Comment:Reference Values:> o r = [...] BLOOD ORDERABLES Final Result Performing Organization Address [facility] Co de Phone Number [facility] [address] [place] [phone] * Hepatitis Panel, General (04/12/2025 8:44 AM EDT) Pathologist [facility] Hepatitis A IgM Nonreactive Nonreactive [facility] Comment:IgM antibodies to PRINCE V not detected; does not exclude earlyacute or recovered HAV infection. ~Hepatitis B Surface Antibody NONREACTIVE Nonreactive [facility] Comment:Nonreactive: < 8.00 mIU/mL Hepatitis B Core Antibody Nonreactive Nonreactive [facility] Hepatitis C Antibody Nonreactive Nonreactive [facility] Comment:Antibodies to HCV no t detected; does not exclude early acuteHCV infection. Hepatitis B Surface Ag Negative Negative [facility] Blood Venous blood specimen / Unknown 04/12/2025 8:44 AM EDT 04/12/2025 2:38 PM EDT us Cruz Gerardo MD LAB BLOOD ORDERABLES Final Result Performing Organization Address City/[facility]/ZIP Co de Phone Number [facility] [address] [place] [phone] * HIV-1/2 Antigen and Antibodies, Fourth Generation, with Reflexes (04/12/2025 8:44 AM EDT) HIV AB/AG Nonreactive Nonreactive [facility] Comment:HIV-1 p24 Ag and/or HIV-1/HIV-2 Ab not detected.A test result that is nonreactive does not exclude thepossibility of exposure to or infection with HIV-1 and/orHIV-2. Nonreactive results in this assay for individualswith prior exposure to HIV-1 and/or HIV-2 may be due toantigen and antibody levels that are below the limit ofdetection of this assay.The [facility] HIV Ag/Ab Combo assay result andsupplemental assay results should be interpreted inconjunction with the patient's clinical presentation,history and other laboratory results. If the results areinconsistent with clinical evidence, additional testing issuggested to confirm the result. Blood Venous blood specimen / Unknown 04/12/2025 8:44 AM EDT 04/12/2025 2:38 PM EDT us Cruz Gerardo MD LAB BLOOD ORDERABLES Final Result Performing Organization Address [facility] Co de Phone Number [facility] [address] [place] [phone] * (ABNORMAL) Sed Rate by Modified Westergren (04/12/2025 8:44 AM EDT) Erythrocyte Sedimentation Rate 16(H) 0 - 15 MM/HR [facility] Comment:Patients with polycy themia and many hemoglobin abnormalitiesmay have depressed sed rates whereas patients with anemiamay have elevated sed rates. Blood Venous blood specimen / Unknown 04/12/2025 8:44 AM EDT 04/12/2025 2:38 PM EDT Cruz Gerardo MD LAB BLOOD ORDERABLES Final Result Performing Organization Address [facility] Co de Phone Number [facility] [address] [place] [phone] * Rheumatoid Factor (04/12/2025 8:44 AM EDT) Pathologist [facility] Rheumatoid Factor <13.0 <15.0 IU/mL [facility] Blood Venous blood specimen / Unknown 04/12/2025 8:44 AM EDT 04/12/2025 2:38 PM EDT Cruz Gerardo MD LAB BLOOD ORDERABLES Final Result Performing Organization Address [facility] de Phone Number [facility] [address] [place] [phone] * (ABNORMAL) C-reactive Protein (04/12/2025 8:44 AM EDT) Pathologist [facility] C Reactive Protein 0.55(H) < or = 0.50 mg/dL [facility] Blood Venous blood specimen / Unknown 04/12/2025 8:44 AM EDT 04/12/2025 2:38 PM EDT Cruz Gerardo MD LAB BLOOD ORDERABLES Final Result Performing Organization Address [facility] de Phone Number [facility] [address] [place] [phone] * (ABNORMAL) TALIA Screen,IFA, with Reflex to Titer and Pattern (04/12/2025 8:44 AM EDT) Pathologist [facility] Anti Nuclear Antibody Screen POSITIV E(A) NEGATIVE [facility] Comment:TALIA IFA is a first l ine screen for detecting thepresence of up to approximately 150 autoantibodies invarious autoimmune diseases. A positive TALIA IFA resultis suggestive of autoimmune disease and reflexes totiter and pattern. Further laboratory testing may beconsidered if clinically indicated.For additional information, please refer [email or web address]/[email or web address](This link is being provided for informational/educational purposes only.) TALIA Titer 1:80(A) titer [facility] Comment:A low level TALIA tite r may be present in pre-clinicalautoimmune diseases and normal individuals. Reference Range <1:40 Negative 1:40-1:80 Low Antibody Level >1:80 Elevated Antibody Level TALIA Pattern Nuclear , Homogen eous(A) [facility] Comment:Homogeneous pattern is associated with systemic lupuserythematosus (SLE), drug-induced lupus and juvenileidiopathic arthritis.AC-1: HomogeneousInternational Consensus on TALIA Patterns(https://doi.org/10.1515/zyly-1688-9673)THIS TEST WAS PERFORMED AT:[facility] [place] [phone] KLINE MD TALIA Titer 2 TNP [facility] TALIA Pattern 2 TNP [facility] TALIA TITER 3 TNP [facility] TALIA PATTERN 3 TNP [facility] Blood Venous blood specimen / Unknown 04/12/2025 8:44 AM EDT 04/12/2025 2:38 PM EDT Cruz Gerardo MD LAB BLOOD ORDERABLES Final Result [facility] [address] [place] [phone] * CA ARTHROCENTESIS ASPIR&/INJ MAJOR JT/BURSA W/O US (02/27/2025 9:40 AM EDT) Narrative Shannan Son MD - 02/27/2025 9:40 AM EDT Shannan Son MD 02/27/2025 9:41 AM Arthrocentesis Date/Time: 02/27/2025 9:40 AM Performed by: Shannan Son MD Authorized by: Shannan Son MD Consent: Consent obtained: Verbal and written Consent given by: Patient Risks, benefits, and alternatives were discussed: yes Risks discussed: Pain Alternatives discussed: Referral [place] protocol: Procedure explained and questions answered to [...] AM EDT Narrative 02/07/2025 9:14 [place] [address] XRay Report Signed Patient: Andrea Valverde MR#: [id number] : 1965 Acct:[id number] Age/Sex: 59 / M ADM Date: 02/07/25 Loc: HO.HHCX Attending Dr: Cruz Gearrdo MD Ordering Physician: Cruz Gerardo MD Date of Service: 02/07/25 Procedure(s): XR shoulder RT min 2V Accession Number(s): [id number] cc: Cruz Gerardo MD EXAMINATION: XR SHOULDER, [...] in OV> 02/07/25910 DD/ 2 TD/TT: 02/07/25899 Chucker: Procedure Note Donotuseinterpreter, Image - 02/07/[address] [address] XRay Report Signed Patient: Andrea Valverde MMR#: [id number] : 1965Acct:[id number] Age/Sex: 59 / MADM Date: 02/07/25 Loc: HO.HHCX Attending Dr: Cruz Gerardo MD Ordering Physician: Cruz Gerardo MD Date of Service: 02/07/25 Procedure(s): XR shoulder RT min 2V Accession Number(s): [id number] cc: Cruz Gerardo MD EXAMINATION: XR SHOULDER, [...] OV> 02/07/25910 DD/ 2 TD/TT: 02/07/25 09 Chucker: Cruz Gerardo MD IMG XR PROCEDURES Final Res ult from Last 3 Months Insurance [place] [facility] MEDICAID STAND ADULT Care Teams Outsewer Relationship Specialty Start Date End Date Cruz Gerardo MD [address] [place] [address] [address] PCP - General Internal Medicine 09/03/24
--- OUTSIDE RECORDS SUMMARY | 2025-05-10 10:26 | XMS_ITS | Encounter Summary ---
Author Organization [employer] Address [address] [place] [address] [address] Care Team Providers Care Household Appliance Installer Name Role Phone Cruz Gerardo MD Primary Care Provider [phone] Reason for Referral * Consultation (Routine) - Authorized Specialty Diagnoses / Procedures Referred By Contwhitney t Referred To Contact Rheumatology Diagnoses Pain in other joint Cruz Gerardo MD [address] [place] [address] Phone: tel: fax: [facility] [address] [place] [address] Phone: tel: fax: Referral ID Status Reason Start Date Expiration Date Visits Requested Visits Authorized [id number] Authorized Specialty Services Required 2026 1 1 Encounter Details Date Type Department Care Team ([facility] st Contact Info) Description 04/12/2025 Orders Only [facility] [address] [place] [address] Cruz Gerardo MD [address] [place] [address] Pain in other joint (Primary Dx) Social [...] documented as of this encounter Care Teams Household Appliance Installer Relationship Specialty Start Date End Date Cruz Gerardo MD [address] [place] [phone] PCP - General Internal Medicine 09/03/24 documented as of this encounter
--- OUTSIDE RECORDS SUMMARY | 2025-05-10 10:26 | XMS_ITS | Encounter Summary ---
Author Organization [facility] [facility] Address [address] [facility] 7t [place] [address] Care Team Providers Care Roller Helper Name Role Phone Libertad Palafox MD Primary Care Provider [phone] Cruz Gerardo MD Primary Care Provider [phone] Encounter Details Date Type Department Care Team (Latest Contact Info) Description 12/18/2021 Abstract [facility] CONVERSIONS Dental, Provider, DDS Social History Tobacco [...] on filedocumented in this encounter Care Teams Roller Helper Relationship Specialty Start Date End Date Libertad Palafox MD [address] [place] [address] PCP - General Family Medicine 10/09/21 09/02/24 Cruz Gerardo MD [address] [place] [address] PCP - General Internal Medicine 09/03/24 documented as of this encounter
[2025-05-10 14:15] LABS: MANUAL DIFF FLAG NO
[2025-05-10 14:21] LABS: Hematocrit 43.0 % (42.0-52.0); Hemoglobin 14.5 g/dl (14.0-18.0); Imm Gran Abs Auto 0.04 X10*3/uL (0.00-0.03); Imm Gran Pct Auto 0.5 % (0.0-0.4); Lymphocytes Absolute Auto 2.3 X10*3/uL (1.2-4.9); Mean Corpuscular HGB Conc 33.7 g/dl (31.0-36.0); Mean Corpuscular Hemoglobin 31.5 pg (27.0-33.0); Mean Corpuscular Volume 93.5 fL (80.0-98.0); NRBC Abs Auto 0.000 X10*3/uL (0.0-0.012); NRBC Pct Auto 0.0 /100WBC (0.0-0.2); Platelet Count 324 X10*3/uL (160-400); Red Blood Count 4.60 X10*6/uL (4.60-5.80); White Blood Count 8.5 X10*3/uL (4.8-10.8)
[2025-05-10 14:40] LABS: Cholesterol 237 mg/dL (<200); HDL Cholesterol 39 mg/dL (>40); Triglycerides 126 mg/dL (<150)
[2025-05-11 08:20] LABS: HIV Num 1 0.05 S/CO (0.00-0.99); ~HepC Num1 0.10 S/CO (0.00-0.79); ~Hepatitis C Antibody Nonreactive (Nonreactive)
== END 2025-05-10 09:28 | disposition home or self-care (01) ==
LOC: HO.CHCLDS 09:27
PROVIDERS: Visit Provider Internal Medicine
DX: Z11.59 Encounter for screening for other viral diseases (principal); Z11.4 Encounter for screening for human immunodeficiency virus [HIV]; M19.90 Unspecified osteoarthritis, unspecified site; M25.511 Pain in right shoulder; G89.29 Other chronic pain; K42.9 Umbilical hernia without obstruction or gangrene; Z20.5 Contact with and (suspected) exposure to viral hepatitis; Z20.6 Contact with and (suspected) exposure to human immunodeficiency virus [HIV]
CPT/HCPCS: 36415; 80061; 84443; 85025; 86803; 87389

== ENCOUNTER 2025-06-05 08:59 | Day surgery (SDC) | payer MEDICAID, SELFPAY ==
--- OUTSIDE RECORDS SUMMARY | 2025-05-31 13:35 | XMS_ITS | Encounter Summary ---
Author Organization [facility] Address [address] [facility] [address] [place] [address] Care Team Providers Care Hydrotel Operator Name Role Phone Libertad Palafox MD Primary Care Provider [phone] Cruz Gerardo MD Primary Care Provider [phone] Encounter Details Date Type Department Care Team (Latest Contact Info) Description 12/18/2021 Abstract [facility] CONVERSIONS Dental, Provider, DDS Social History [...] on filedocumented in this encounter Care Teams Hydrotel Operator Relationship Specialty Start Date End Date Libertad Palafox MD [address] [place] [address] PCP - General Family Medicine 10/09/21 09/02/24 Cruz Gerardo MD [address] [place] [address] PCP - General Internal Medicine 09/03/24 documented as of this encounter
--- OUTSIDE RECORDS SUMMARY | 2025-05-31 13:35 | XMS_ITS | Clinical Summary ---
Author Organization [facility] Address [address] [place] [address] Care Team Providers Care Instructional Coordinator Name Role Phone Cruz Gerardo MD Primary Care Provider [phone] Allergies Active Allergy Reactions Criticality Noted Date Comments Codeine 10/20/2022 Medications celecoxib (CeleBREX) 100 MG capsuleIndicati ons:Pain in other joint Take 1 capsule (100 mg) by mouth 2 times daily. 60 capsule 04/12/2025 05/12/20 25 Hospital, Clinic, or Other Facility Administered Medication [...] Encounters Date Type Department Care Team Description 05/13/2025 Results Follow-Up [facility] [address] [place] [address] Linda Iniguez RN CBC auto differential, Lipid Panel, Standard, Hepatitis C Antibody with Reflex to HCV, RNA, Quantitative, Real-Time PCR, Additional followed-up results: 2 05/13/2025 Orders Only [facility] [address] [place] [address] Cruz Gerardo MD 04/15/2025 Results Follow-Up [facility] [address] [place] [address] Lay Chowdhury RN Sed Rate by Modified W[place]gren, C-reactive Protein, Vitamin B12/Folate, Serum Panel, Additional followed-up results: 4 04/12/2025 Orders Only [facility] [address] [place] [phone] Cruz Gerardo MD Pain in other joint (Primary Dx) 04/04/2025 1:15 PM EDT Office Visit [facility] [address] [place] [address] Cruz Gerardo MD Transaminitis (Primary Dx); Annual physical exam; Chronic pain of both feet; Pain in other joint; Other irritable bowel syndrome; Screening for colon cancer; Other hemorrhoids; Bunion, right foot; Umbilical hernia without obstruction and without gangrene; Encounter for immunization 04/04/2025 Travel 04/03/2025 Telephone [facility] [address] [place] [address] Cruz Gerardo MD Chart Prep 04/01/2025 Travel 03/28/2025 Patient Outreach [facility] [address] [place] [address] Cruz Gerardo MD Pre-visit Planning (Pre visit planning LVM ) from Last 3 Months Immunizations Immunization Administration [...] Dental Prophylaxis 1966 Dental X-Ray: Bitewings 1966 FIT DNA/Cologuard 1966 FIT 1966 FOBT 1966 Sigmoidoscopy 1966 Hepatitis A Vaccines (1 [...] 02/25/2025 (Patient Refused) Tobacco Screening 04/04/2026 04/04/2025 Dental X-Ray: Full Mouth 09/22/20262 024, 09/11/2021 Lipid Panel 05/10/2030 05/10/2025 DTaP/Tdap/Td Vaccines (2 - T d or Tdap) 09/04/2034 09/04/2024, 07/28/2005 RSV Patients and Patients Aged 60 years or older (1 - 1-dose 75+ series) 2041 Influenza Vaccine Completed 04/04/2025, 04/16/2020 HIV Screening Completed 05/10/2025, 04/12/2025 Hepatitis C Screening Completed 05/10/2025 , 04/12/2025 Anal Pap Discontinued HIB Vaccines Aged [...] Procedure Name Priority Date/Time Associated Diagnosis Comments TSH W/REFLEX TO FT4 Routine 05/10/2025 9 :28 AM EST Arthritis Umbilical hernia without obstruction and without gangrene Chronic right shoulder pain HIV 1/2 ANTIGEN/ANTIBODY, FOURTH GENERATION W/RFL Routine 05/10/2025 9:28 AM EST Arthritis Umbilical hernia without obstruction and without gangrene Chronic right shoulder pain HEPATITIS C AB W/REFL TO HCV RNA, QN, PCR Routine 05/10/2025 9:28 AM EST Arthritis Umbilical hernia without obstruction and without gangrene Chronic right shoulder pain LIPID PANEL, STANDARD Routine 05/10/2025 9:28 AM EST Arthritis Chronic right shoulder pain CBC WITH AUTO DIFFERENTIAL Routine 05/10/2025 9:28 AM EST Arthritis Chronic right shoulder pain RHEUMATOID FACTOR Routine 04/12/2025 8:4 4 AM [...] 8:44 AM EDT Transaminitis Annual physical exam from Last 3 Months Results * TSH W/Reflex to FT4 (05/10/2025 9:28 AM EST) TSH reflex Free T4 0.73 0.32 - 4.0 uIU/mL [facility] Blood Venous blood specimen / Unknown 05/10/2025 9:28 AM EST 05/10/2025 2:08 PM EST us Cruz Gerardo MD LAB BLOOD ORDERABLES Final Result [facility] [address] [place] [phone] * (ABNORMAL) CBC auto differential (05/10/2025 9:28 AM EST) White Blood Count 8.5 4.8 - 10.8 X10*3/uL [facility] Red Blood Count 4.60 4.60 - 5.80 X10*6/uL [facility] Hemoglobin 14.5 14.0 - 18.0 g/dl [facility] Hematocrit 43.0 42.0 - 52.0 % [facility] Mean Corpuscular Volume 93.5 80.0 - 98.0 fL [facility] Mean Corpuscular Hemoglobin 31.5 27.0 - 33.0 pg [facility] Mean Corpuscular HGB Conc 33.7 31.0 - 36.0 g/dl [facility] Red Cell Distribution Width 12.9 11.0 - 16.0 % [facility] Platelet Count 324 160 - 400 X10*3/uL [facility] Mean Platelet Volume 10.1 9.4 - 12.4 fL [facility] Neutrophils Percent Auto 62.1 45 - 73 % [facility] Imm Gran Pct Auto 0.5(H) 0.0 - 0.4 % [facility] Lymphocytes Percent Auto 27.3 20 - 40 % [facility] Monocytes Percent Auto 8.5 2 - 11 % [facility] Eosinophils Percent Auto 1.2 0 - 4 % [facility] Basophils Percent Auto 0.4 0 - 2 % [facility] NRBC Pct Auto 0.0 0.0 - 0.2 /100WBC [facility] Neutrophils Absolute Auto 5.3 2.0 - 8.3 x10*3/uL [facility] Imm Gran Abs Auto 0.04(H) 0.00 - 0.03 X10*3/uL [facility] Lymphocytes Absolute Auto 2.3 1.2 - 4.9 X10*3/uL [facility] Monocytes Absolute Auto 0.7 0.1 - 1.2 X10*3/uL [facility] Eosinophils Absolute Auto 0.1 0.0 - 0.4 X10*3/uL [facility] Basophils Absolute Auto 0.0 0.0 - 0.2 X10*3/uL [facility] NRBC Abs Auto 0.000 0.0 - 0.012 X10*3/uL [facility] Blood Venous blood specimen / Unknown 05/10/2025 9:28 AM EST 05/10/2025 2:08 PM EST us Cruz Gerardo MD LAB BLOOD ORDERABLES Final Result [facility] [address] [place] [phone] * Hepatitis C Antibody with Reflex to HCV, RNA, Quantitative, Real-Time PCR (05/10/2025 9:28 AM EST) Hepatitis C Antibody Nonreactive Nonreactive [facility] Comment:Antibodies to HCV no t detected; does not exclude early acuteHCV infection. Blood Venous blood specimen / Unknown 05/10/2025 9:28 AM EST 05/10/2025 2:08 PM EST Cruz Gerardo MD LAB BLOOD ORDERABLES Final Result Performing Organization Address [facility] Co de Phone Number [facility] [address] [place] [phone] * HIV-1/2 Antigen and Antibodies, Fourth Generation, with Reflexes (05/10/2025 9:28 AM EST) Only the most recent of2 resultswithin the time period is included. [facility] HIV AB/AG Nonreactive Nonreactive [facility] Comment:HIV-1 p24 Ag and/or HIV-1/HIV-2 Ab not detected.A test result that is nonreactive does not exclude thepossibility of exposure to or infection with HIV-1 and/orHIV-2. Nonreactive results in this assay for individualswith prior exposure to HIV-1 and/or HIV-2 may be due toantigen and antibody levels that are below the limit ofdetection of this assay.[employer] HIV Ag/Ab Combo assay result andsupplemental assay results should be interpreted inconjunction with the patient's clinical presentation,history and other laboratory results. If the results areinconsistent with clinical evidence, additional testing issuggested to confirm the result. Blood Venous blood specimen / Unknown 05/10/2025 9:28 AM EST 05/10/2025 2:08 PM EST us Cruz Gerardo MD LAB BLOOD ORDERABLES Final Result Performing Organization Address [facility] Co de Phone Number [facility] [address] [place] [phone] * (ABNORMAL) Lipid Panel, Standard (05/10/2025 9:28 AM EST) [facility] Triglycerides 126 <150 mg/dL [facility] Comment:Desirable Triglyceri de: less than 150 mg/dLBorderline High Triglyceride 150-199 mg/dLHigh Triglyceride: 200-499 mg/dLVery High Triglyceride: greater than or equal to 5OO mg/dL Cholesterol 237(H) <200 mg/dL [facility] Comment:Desirable Cholestero l: less than 200 mg/dLBorderline High Cholesterol: 200-239 mg/dLHigh Cholesterol: greater than 239 mg/dL LDL Cholesterol Calculated 173(H) <100 mg/dL [facility] Comment:Desirable LDL: less than 100 mg/dLNear Optimal/Above Optimal LDL: 110- 129 mg/dLBorderline High LDL: 130-159 mg/dLHigh LDL: 160-189 mg/dLVery High LDL: greater than or equal to 190 mg/dL HDL Cholesterol 39(L) >40 mg/dL [facility] Comment:Desirable HDL: great er than 40 mg/dL Note: This HDL assay may give artificially low results in patients with liver disease. Blood Venous blood specimen / Unknown 05/10/2025 9:28 AM EST 05/10/2025 2:08 PM EST us Cruz Gerardo MD LAB BLOOD ORDERABLES Final Result [facility] [address] [place] [phone] * Vitamin B12/Folate, Serum Panel (04/12/2025 8:44 AM EDT) Vitamin B12 281 200 - 900 pg/mL [facility] Comment:NORMAL 200-900 PG/ML INDETERMINATE 160-199 PG/ML DEFICIENT < 160 PG/ML Folate 5.9 > or = 4.0 ng/mL [facility] Comment:Reference Values:> o r = [...] BLOOD ORDERABLES Final Result Performing Organization Address [facility] Co de Phone Number [facility] [address] [place] [phone] * Hepatitis Panel, General (04/12/2025 8:44 AM EDT) Hepatitis A IgM Nonreactive Nonreactive [facility] Comment:IgM antibodies to PRINCE V not detected; does not exclude earlyacute or recovered HAV infection. ~Hepatitis B Surface Antibody NONREACTIVE Nonreactive [facility] Comment:Nonreactive: < 8.00 mIU/mL Hepatitis B Core Antibody Nonreactive Nonreactive [facility] Hepatitis C Antibody Nonreactive Nonreactive [facility] Comment:Antibodies to HCV no t detected; does not exclude early acuteHCV infection. Hepatitis B Surface Ag Negative Negative [facility] Blood Venous blood specimen / Unknown 04/12/2025 8:44 AM EDT 04/12/2025 2:38 PM EDT Cruz Gerardo MD LAB BLOOD ORDERABLES Final Result Performing Organization Address [facility] de Phone Number [facility] [address] [place] [phone] * (ABNORMAL) Sed Rate by Modified Silvinoergren (04/12/2025 8:44 AM EDT) Erythrocyte Sedimentation Rate 16(H) 0 - 15 MM/HR [facility] Comment:Patients with polycy themia and many hemoglobin abnormalitiesmay have depressed sed rates whereas patients with anemiamay have elevated sed rates. Blood Venous blood specimen / Unknown 04/12/2025 8:44 AM EDT 04/12/2025 2:38 PM EDT us Cruz Gerardo MD LAB BLOOD ORDERABLES Final Result Performing Organization Address [facility] Co de Phone Number [facility] [address] [place] [phone] * Rheumatoid Factor (04/12/2025 8:44 AM EDT) Rheumatoid Factor <13.0 <15.0 IU/mL [facility] Blood Venous blood specimen / Unknown 04/12/2025 8:44 AM EDT 04/12/2025 2:38 PM EDT Cruz Gerardo MD LAB BLOOD ORDERABLES Final Result Performing Organization Address [facility] de Phone Number [facility] [address] [place] [phone] * (ABNORMAL) C-reactive Protein (04/12/2025 8:44 AM EDT) Pathologist [facility] C Reactive Protein 0.55(H) < or = 0.50 mg/dL [facility] Blood Venous blood specimen / Unknown 04/12/2025 8:44 AM EDT 04/12/2025 2:38 PM EDT us Cruz Gerardo MD LAB BLOOD ORDERABLES Final Result Performing Organization Address [facility] de Phone Number [facility] [address] [place] [phone] * (ABNORMAL) TALIA Screen,IFA, with Reflex to Titer and Pattern (04/12/2025 8:44 AM EDT) Anti Nuclear Antibody Screen POSITIV E(A) NEGATIVE [facility] Comment:TALIA IFA is a first l ine screen for detecting thepresence of up to approximately 150 autoantibodies invarious autoimmune diseases. A positive TALIA IFA resultis suggestive of autoimmune disease and reflexes totiter and pattern. Further laboratory testing may beconsidered if clinically indicated.For additional information, please refer tohttp://education.[employer].com/faq/KGK345(This link is being provided for informational/educational purposes only.) TALIA Titer 1:80(A) titer [facility] Comment:A low level TALIA tite r may be present in pre-clinicalautoimmune diseases and normal individuals. Reference Range <1:40 Negative 1:40-1:80 Low Antibody Level >1:80 Elevated Antibody Level TALIA Pattern Nuclear , Homogen eous(A) [facility] Comment:Homogeneous pattern is associated with systemic lupuserythematosus (SLE), drug-induced lupus and juvenileidiopathic arthritis.AC-1: HomogeneousInternational Consensus on TALIA Patterns(https://doi.org/10.1515/sdds-7555-9915)THIS TEST WAS PERFORMED AT:[employer] [place] [phone] KLINE MD TALIA Titer 2 TNP [facility] TALIA Pattern 2 TNP [facility] TALIA TITER 3 TNP [facility] TALIA PATTERN 3 TNP [facility] Blood Venous blood specimen / Unknown 04/12/2025 8:44 AM EDT 04/12/2025 2:38 PM EDT Cruz Gerardo MD LAB BLOOD ORDERABLES Final Result [facility] [address] [place] [phone] from Last 3 Months Insurance [facility] [address] [place] [address] [place] AD[place] Care Teams Instructional Coordinator Relationship Specialty Start Date End Date Cruz Gerardo MD [address] [place] [phone] PCP - General Internal Medicine 09/03/24
--- OUTSIDE RECORDS SUMMARY | 2025-05-31 13:35 | XMS_ITS | Clinical Summary ---
Author Organization [address] [facility] Address [address] [place] [phone] Phone Care Team Providers Care Beef Boner Name Role Phone Cruz Gerardo MD Primary Care Provider [phone] Social History Tobacco Use Types Packs/Day Years [...] AM EST Office Visit Orthopedic Surgery - [place] [address] [phone] Piero Banerjee DPM [address] [address] Health Maintenance Due Date Last Done Comments [...] to complete this topic Insurance [place] Care Teams Beef Boner Relationship Specialty Start Date End Date Cruz Gerardo MD [address] [place] [phone] PCP - General Internal Medicine 04/10/25
--- OUTSIDE RECORDS SUMMARY | 2025-05-31 13:35 | XMS_ITS | Encounter Summary ---
Author Organization [employer] Address [address] [place] [address] Care Team Providers Care Reinforcing Steel Placer Name Role Phone Cruz Gerardo MD Primary Care Provider Encounter Details Date Type Department Care Team ([facility] st Contact Info) Description 05/13/2025 Orders Only [facility] [address] [place], [place] [phone] Cruz Gerardo MD [address] [place] [address] Social History Tobacco Use Types Packs/Day Years [...] Diagnoses Not on filedocumented in this encounter Additional Health Concerns Assessment Noted Time PHQ-9 Depression Total Score: 2 09/05/19 25 1:44 PM EDT documented as of this encounter Care Teams Reinforcing Steel Placer Relationship Specialty Start Date End Date Cruz Gerardo MD [address] [place] [phone] PCP - General Internal Medicine 09/03/24 documented as of this encounter
--- OUTSIDE RECORDS SUMMARY | 2025-05-31 13:35 | XMS_ITS | Encounter Summary ---
Author Organization [employer] Address [address] [place] [address] [address] [address] Care Team Providers Care Newspaper Photojournalist Name Role Phone Cruz Gerardo MD Primary Care Provider [phone] Reason for Referral * Consultation (Routine) - Authorized Specialty Diagnoses / Procedures Referred By Contwhitney t Referred To Contact Rheumatology Diagnoses Pain in other joint Cruz Gerardo MD [address] [place] [address] Phone: tel: fax: [facility] [address] [place] [address] Phone: tel: fax: Referral ID Status Reason Start Date Expiration Date Visits Requested Visits Authorized [id number] Authorized Specialty Services Required 2026 1 1 Encounter Details Date Type Department Care Team ([facility] st Contact Info) Description 04/12/2025 Orders Only [facility] [address] [place] [address] Cruz Gerardo MD [address] [place] [address] Pain in other joint (Primary Dx) Social [...] documented as of this encounter Care Teams Newspaper Photojournalist Relationship Specialty Start Date End Date Cruz Gerardo MD [address] [place] [phone] PCP - General Internal Medicine 09/03/24 documented as of this encounter
[2025-06-03 08:42] VITALS: BMI 27.5
--- NOTE | 2025-06-03 10:13 | HO.ANESPROP2 ---
Documented by User: Lizette Mims NP 06/03/25 10:13 HPI - Anesthesia Eval Consult details Narrative: 60 yr old male for Repair Hernia Umbilical Reducible with mesh PMFSH Active Problems Active Problems: All Active Problems (Updated 05/07/25 @ 10:09 by Hadley John MD) Umbilical hernia without mention of obstruction or gangrene (Acute) Dog bite of arm (Acute) Past Medical History Medical History Umbilical hernia without mention of obstruction or gangrene Arthritis Surgical History Surgical History H/O colonoscopy Social History Social History Alcohol intake: current Alcohol intake frequency: holidays/special occasions only Patient Tobacco Use Status: Former Tobacco user Use of substances other than those prescribed or required for medical reasons: Yes Substance Use Type Other:: LD 3 days ago Substance Use Frequency: Occasionally Are you DNR?: No Advance Directives: No Advance Directives Information Provided: Yes Meds Allergies Allergy/AdvReac Type Severity Reaction Status Date / Time codeine (CODEINE) AdvReac Unknown NAUSEA & Verified 06/05/25 09:16 VOMITING Home Medications ?Medication ?Instructions ?Recorded ?Confirmed ?Last Taken ?Type No Known Home Meds 01/17/21 06/05/25 Unknown History Exam Height,Weight and Vital Signs: Height 5 ft 11 in Weight 89.358 kg Pertinent Lab Results Pertinent Lab Results: Laboratory Tests 05/10/25 09:28 WBC 8.5 RBC 4.60 Hgb 14.5 Hct 43.0 Plt Count 324 Documented by User: Coco Hunter MD 06/05/25 09:36 PMFSH Past Medical History Medical History Umbilical hernia without mention of obstruction or gangrene Arthritis Family History Family history of problems with anesthesia: No Surgical History Surgical History H/O colonoscopy History of Problems with Anesthesia: No Social History Social History Alcohol intake: current Alcohol intake frequency: holidays/special occasions only Patient Tobacco Use Status: Former Tobacco user Use of substances other than those prescribed or required for medical reasons: Yes Substance Use Type Other:: LD 3 days ago Substance Use Frequency: Occasionally Are you DNR?: No Advance Directives: No Advance Directives Information Provided: Yes Meds Allergies Allergy/AdvReac Type Severity Reaction Status Date / Time codeine (CODEINE) AdvReac Unknown NAUSEA & Verified 06/05/25 09:16 VOMITING Home Medications ?Medication ?Instructions ?Recorded ?Confirmed ?Last Taken ?Type No Known Home Meds 01/17/21 06/05/25 Unknown History Exam Airway Mallampati Class: II TM Dist: >3cm Neck ROM: Full Heart: rrr Lungs: cta Assessment and Plan Assessment Anesthesia Assessment: Anesthesia Plan Discussed and Chart Reviewed Final Anesthetic Review Family History of Problems with Anesthesia: No History of Problems with Anesthesia: No NPO: Yes ASA Class: II Final Preanesthetic Review: No Changes in Pt Med Stat, Meds/Allgs Chart Reviewed, Consent Obtained/Reviewed and Anes Risks/Benef Reviewed Patient Risk: Intermediate Procedure Risk: Intermediate Anesthetic Plan Anesthetic Plan: GA and Agree w/ Assess. and Plan Disposition: Standard PACU
[2025-06-05 09:11] VITALS: BMI 27.3
[2025-06-05 09:21] VITALS: BP 133/79; PULSE 87; RESP 15; TEMP 36.6; O2SAT 93
[2025-06-05] MEDS: Lactated Ringers 1,000 ML 100 ML IVCONT (09:38)
--- NOTE | 2025-06-05 09:51 | MHC.SHP ---
Pre-Procedural Eval Section A - 24 Hr Update-Section A only Date of Service: 06/05/25 The patient is an INPATIENT: No Changes since office visit: Yes Patient answered all questions; No Cold of Flu in the past 2 weeks, No New Medical Problems and No Changes in Medication The patient has been examined within 24 hours of the surgical procedure. The History & Physical has been completed within 30 days and I have reviewed it.: Yes Section B - Complete if H&P > 30 days Chief Complaint: Umbilical hernia without obstruction or gangrene Allergies: Allergies Allergy/AdvReac Type Severity Reaction Status Date / Time codeine (CODEINE) AdvReac Unknown NAUSEA & Verified 06/05/25 09:16 VOMITING Review of Systems Sugical H&P ROS: Negative: Constitution, Cardiovascular, Respiratory, Neurological, Psychiatric, Hem-Onc, Allergic/Immunologic, Gastrointestinal, Genitourinary, Musculoskeletal, Integumentary and Endocrine Exam Surgical H&P Exam: Normal: HEENT, Normal: Heart, Normal: Lungs, Normal: Extremities, Normal: Abdomen and Normal: Skin Plan Diagnosis/Plan: Unchanged I have reviewed the history and physical and performed a pertinent physical examination on my patient. No changes have occurred unless specified. Time Spent With Patient Time: Total time managing care of this patient today ____ minutes.
--- NOTE | 2025-06-05 10:52 | P.OP_ITS ---
Operative Note Operative Note Date of Service: 06/05/25 Narrative: Preoperative diagnosis: Umbilical hernia (5 cm), reducible Postoperative diagnosis: Same Procedure: Repair of umbilical hernia with mesh Surgeon: Hadley John MD Engine Generator Assembler: Jazzmine Lundberg PA-C; Anesthesia: General LMA Indications for procedure: 60-year-old male patient presenting with a reducible umbilical hernia which is increasing in size and causing discomfort. On examination the hernia measures approximately 5 cm in diameter. Operative findings: Umbilical hernia repaired using a 6.4 cm round Ventralex mesh Specimen: None Estimated blood loss: Less than 2 mL Complications: None Procedure details: Patient was brought to the OR and placed in a supine position. After administering general anesthesia the patient's abdomen was prepped with ChloraPrep and draped in a sterile fashion. A surgical time-out was called the consent confirmed. Patient received preoperative antibiotics and Venodyne boots were in place. Local anesthesia was then infiltrated around the umbilicus. A curvilinear incision was then made over the umbilicus in a transverse fashion and carried out through subcutaneous tissue down to fascia. Hernia sac was then identified and dissected free from the umbilical skin. The umbilical skin was then lifted off the fascia. Hernia sac was then dissected down to the fascial defect and the sac reduced into the abdominal cavity. A preperitoneal space was then created using electrocautery. At this point a 6.4 cm round Ventralex mesh was obtained and deployed within the preperitoneal space. This was secured in 4 quadrants using a 1 Tycron suture using a parachute method. The fascia was then closed over the mesh incorporating the mesh in the closure using [id number] 1 Tycron sutures. Prior to complete closure of the fascia 6 mL of Zenrelef was instilled below the fascia. The fascia was then closed completely. Wounds were then irrigated with saline solution and suctioned dry. Umbilical skin was then reattached to the fascia using a 2-0 Polysorb suture. Dermis was then reapproximated using interrupted 3-0 Polysorb sutures. Skin was closed using a running subcuticular 4-0 Polysorb suture. Steri-Strips, 4 x 4 gauze and Tegaderm were then applied. The patient tolerated the procedure well. Sponge, instrument, and needle counts reported as correct. The patient was transferred to PACU in stable condition.
[2025-06-05 11:00] VITALS: BP 114/70; PULSE 94; RESP 12; TEMP 36.2; O2SAT 97
[2025-06-05 11:05] VITALS: BP 127/73; PULSE 83; RESP 16; O2SAT 93
[2025-06-05 11:10] VITALS: BP 127/83; PULSE 81; RESP 16; O2SAT 96
[2025-06-05 11:15] VITALS: BP 127/72; PULSE 73; RESP 16; O2SAT 95
[2025-06-05 11:25] VITALS: BP 123/85; PULSE 66; RESP 16; TEMP 36.6; O2SAT 98
--- NOTE | 2025-06-05 12:13 | PC.NURSE ---
PT PALE AND REPORTED FEELING DIAPHORETIC. BP 130/81, HR 70, 95% RA. PATIENT GIVEN GINGERALE AND COOL CLOTH. AFTER APPROXIMATELY 10 MIN PATIENT STATED FEELING BETTER.
== END 2025-06-05 12:15 | disposition home or self-care (01) ==
PROVIDERS: Visit Provider Surgery
PROC: (CPT 49593; principal; 2025-06-05 10:50)
DX: K42.9 Umbilical hernia without obstruction or gangrene (principal); Z88.5 Allergy status to narcotic agent
CPT/HCPCS: 49593; C1781; J0131; J0668; J0690; J1100; J1885; J2003; J2250; J2405; J2704; J3010

== ENCOUNTER → 2025-06-05 08:59 | Outpatient (BNV) | payer MEDICAID, SELFPAY | PROVIDERS: Visit Provider Surgery | DX: K42.9 Umbilical hernia without obstruction or gangrene (principal) | CPT/HCPCS: 49593 ==

== ENCOUNTER 2025-06-18 10:31 | Outpatient (AMB) | payer MEDICAID, SELFPAY ==
--- NOTE | 2025-06-18 10:40 | MHC.OFFVIS ---
Vital Signs 06/18/25 10:44 Height 5 ft 11 in Weight 199 lb 6 oz BMI 27.8 BP 122/82 Blood Pressure Location Lt brachial Position Sitting Intake Visit Reasons: S/P umbilical hernia w/mesh Intake Note: Patient is seen in office for post op assessment post umbilical hernia repair. Pt c/o: admits to tenderness, denies any other concerns surgery:06/05/25 Telephone Claims Representative Required: No Accompanied by: Self / Same As Patient Allergies codeine (CODEINE) Adverse Reaction (Unknown, Verified 06/18/25 10:44) NAUSEA & VOMITING HPI HPI S/P umbilical hernia w/mesh: Details: Doing well. Some mild tenderness at the incision site. Denies any drainage, denies fevers. Has been eating well, has no issues with bowel movements. PFSH Medical History Umbilical hernia without mention of obstruction or gangrene Arthritis Surgical History (Updated 06/19/25 @ 08:13 by Andrea Watson PA-C) S/P umbilical hernia repair, follow-up exam (06/05/25) H/O colonoscopy Social History Alcohol intake: current Alcohol intake frequency: holidays/special occasions only Comment: correct count Patient Tobacco Use Status: Former Tobacco user Review of Systems Const All systems reviewed & are unremarkable except as noted in HPI and below Physical Exam Vital Signs: Last Vital Signs BP 122/82 06/18/25 10:44 BMI result Body Mass Index 27.8 Const General: comfortable and no acute distress Orientation/consciousness: patient oriented x3 Resp Effort & Inspection: normal respiratory effort and able to speak in complete sentences GI Other: Incision site well healed, scabbing along incision site. No fluid collection, no cellulitis no drainage. Minimally tender Inspection: No distended and Yes obesity Palpation (GI): Soft to palpation, Tenderness to palpation present (GI) (Mild incisional site) and no guarding Neuro General: patient oriented x3 Assessment & Plan Assessment & Plan (1) S/P umbilical hernia repair, follow-up exam: Onset Date: 06/05/25 Comment: Umbilical hernia w/mesh Hadley Garcia Code(s): Z09 - Encounter for follow-up examination after completed treatment for conditions other than malignant neoplasm Category: Surgical Plan 60-year-old male s/p umbilical hernia repair with mesh with Dr. John on 06/05/2025 returning to the office for follow up. Overall doing well. Experiencing some mild pain from the incision site. Overall improving. Diet and bowel function at baseline. Has been avoiding heavy lifting. On exam incision site clean dry intact, there was some scabbing along the incision site but no evidence of cellulitis or infection. Was unable to palpate any fluid collections. Abdomen otherwise soft and benign. We will continue with activity restrictions for total of 6 weeks. He understands this. We will continue to avoid heavy lifting. He will return in 3-4 weeks for follow up. Can return sooner with any questions or concerns Coding Level of Care Code Est Pt Level 4 (78029) Diagnoses S/P umbilical hernia repair, follow-up exam Z09
[2025-06-18 10:44] VITALS: BP 122/82; BMI 27.8
--- OUTSIDE RECORDS SUMMARY | 2025-06-18 11:48 | XMS_ITS | Clinical Summary ---
Author Organization [facility] Address [address] [facility] [address] 7t [place] [address] Care Team Providers Care Emergency Services Professional Name Role Phone Cruz Gerardo MD Primary Care Provider Allergies Active Allergy Reactions Criticality Noted Date Comments Codeine 10/20/2022 Medications Hospital, Clinic, or Other Facility Administered Medication [...] Department Care Team Description 05/13/2025 Results Follow-Up [facility] [address] [place], [place] [phone] Linda Iniguez RN CBC auto differential, Lipid Panel, Standard, Hepatitis C Antibody with Reflex to HCV, RNA, Quantitative, Real-Time PCR, Additional followed-up results: 2 05/13/2025 Orders Only [facility] [address] [place] [address] Cruz Gerardo MD 04/15/2025 Results Follow-Up [facility] [address] [place], [place] [phone] Lay Chowdhury RN Sed Rate by Modified Kathya, C-reactive Protein, Vitamin B12/Folate, Serum Panel, Additional followed-up results: 4 04/12/2025 Orders Only [facility] [address] [place] [address] Cruz Gerardo MD Pain in other joint (Primary Dx) 04/04/2025 1:15 PM EDT Office Visit [facility] [address] [place] [address] Cruz Gerardo MD Transaminitis (Primary Dx); Annual physical exam; Chronic pain of both feet; Pain in other joint; Other irritable bowel syndrome; Screening for colon cancer; Other hemorrhoids; Bunion, right foot; Umbilical hernia without obstruction and without gangrene; Encounter for immunization 04/04/2025 Travel 04/03/2025 Telephone [facility] [address] [place] [address] Cruz Gerardo MD Chart Prep 04/01/2025 Travel 03/28/2025 Patient Outreach [facility] [address] [place], [place] [phone] Cruz Gerardo MD Pre-visit Planning (Pre visit [...] Screening 04/04/2026 04/04/2025 Dental X-Ray: Full Mouth 09/22/2026 024, 09/11/2021 Lipid Panel 05/10/2030 05/10/2025 DTaP/Tdap/Td [...] Free T4 0.73 0.32 - 4.0 uIU/mL [facility] Blood Venous blood specimen / Unknown 05/10/2025 9:28 AM EST 05/10/2025 2:08 PM EST us Cruz Gerardo MD LAB BLOOD ORDERABLES Final Result [facility] [address] [place] [address] [phone] * (ABNORMAL) CBC auto differential (05/10/2025 9:28 AM EST) White Blood Count 8.5 4.8 - 10.8 X10*3/uL [facility] Red Blood Count 4.60 4.60 - 5.80 X10*6/uL [facility] Hemoglobin 14.5 14.0 - 18.0 g/dl [facility] Hematocrit 43.0 42.0 - 52.0 % [facility] Mean Corpuscular Volume 93.5 80.0 - 98.0 fL [facility] Mean Corpuscular Hemoglobin 31.5 27.0 - 33.0 pg [facility] Mean Corpuscular HGB Conc 33.7 31.0 - 36.0 g/dl [facility] Red Cell Distribution Width 12.9 11.0 - 16.0 % [facility] Platelet Count 324 160 - 400 X10*3/uL [facility] Mean Platelet Volume 10.1 9.4 - 12.4 fL [facility] Neutrophils Percent Auto 62.1 45 - 73 % [facility] Imm Gran Pct Auto 0.5(H) 0.0 - 0.4 % [facility] Lymphocytes Percent Auto 27.3 20 - 40 % [facility] Monocytes Percent Auto 8.5 2 - 11 % [facility] Eosinophils Percent Auto 1.2 0 - 4 % [facility] Basophils Percent Auto 0.4 0 - 2 % [facility] NRBC Pct Auto 0.0 0.0 - 0.2 /100WBC [facility] Neutrophils Absolute Auto 5.3 2.0 - 8.3 x10*3/uL [facility] Imm Gran Abs Auto 0.04(H) 0.00 - 0.03 X10*3/uL [facility] Lymphocytes Absolute Auto 2.3 1.2 - 4.9 X10*3/uL [facility] Monocytes Absolute Auto 0.7 0.1 - 1.2 X10*3/uL [facility] Eosinophils Absolute Auto 0.1 0.0 - 0.4 X10*3/uL [facility] Basophils Absolute Auto 0.0 0.0 - 0.2 X10*3/uL [facility] NRBC Abs Auto 0.000 0.0 - 0.012 X10*3/uL [facility] Blood Venous blood specimen / Unknown 05/10/2025 9:28 AM EST 05/10/2025 2:08 PM EST Cruz Gerardo MD LAB BLOOD ORDERABLES Final Result [facility] [address] [place] [phone] * Hepatitis C Antibody with Reflex to HCV, RNA, Quantitative, Real-Time PCR (05/10/2025 9:28 AM EST) Hepatitis C Antibody Nonreactive Nonreactive [facility] Comment:Antibodies to HCV no t detected; does not exclude early acuteHCV infection. Blood Venous blood specimen / Unknown 05/10/2025 9:28 AM EST 05/10/2025 2:08 PM EST us Cruz Gerardo MD LAB BLOOD ORDERABLES Final Result Performing Organization Address City/[facility] Co de Phone Number [facility] [address] [place] [phone] * HIV-1/2 Antigen and Antibodies, Fourth Generation, with Reflexes (05/10/2025 9:28 AM EST) Only the most recent of2 resultswithin the time period is included. HIV AB/AG Nonreactive Nonreactive [facility] Comment:HIV-1 p24 Ag and/or HIV-1/HIV-2 Ab not detected.A test result that is nonreactive does not exclude thepossibility of exposure to or infection with HIV-1 and/orHIV-2. Nonreactive results in this assay for individualswith prior exposure to HIV-1 and/or HIV-2 may be due toantigen and antibody levels that are below the limit ofdetection of this assay.[employer] HIV Ag/Ab Combo assay result andsupplemental assay results should be interpreted inconjunction with the patient's clinical presentation,history and other laboratory results. If the results areinconsistent with clinical evidence, additional testing issuggested to confirm the result. Blood Venous blood specimen / Unknown 05/10/2025 9:28 AM EST 05/10/2025 2:08 PM EST us Cruz Gerardo MD LAB BLOOD ORDERABLES Final Result Performing Organization Address City/[facility]/ZIP Co de Phone Number [facility] [address] [place] [phone] * (ABNORMAL) Lipid Panel, Standard (05/10/2025 9:28 AM EST) Triglycerides 126 <150 mg/dL [facility] Comment:Desirable Triglyceri de: less than 150 mg/dLBorderline High Triglyceride 150-199 mg/dLHigh Triglyceride: 200-499 mg/dLVery High Triglyceride: greater than or equal to 5OO mg/dL Cholesterol 237(H) <200 mg/dL [facility] Comment:Desirable Cholestero l: less than 200 mg/dLBorderline High Cholesterol: 200-239 mg/dLHigh Cholesterol: greater than 239 mg/dL LDL Cholesterol Calculated 173(H) <100 mg/dL [facility] Comment:Desirable LDL: less than 100 mg/dLNear Optimal/Above Optimal LDL: 110- 129 mg/dLBorderline High LDL: 130-159 mg/dLHigh LDL: 160-189 mg/dLVery High LDL: greater than or equal to 190 mg/dL HDL Cholesterol 39(L) >40 mg/dL [facility] Comment:Desirable HDL: great er than 40 mg/dL Note: This HDL assay may give artificially low results in patients with liver disease. Blood Venous blood specimen / Unknown 05/10/2025 9:28 AM EST 05/10/2025 2:08 PM EST us Cruz Gerardo MD LAB BLOOD ORDERABLES Final Result [facility] [address] [place] [address] [phone] * Vitamin B12/Folate, Serum Panel (04/12/2025 8:44 AM EDT) Vitamin B12 281 200 - 900 pg/mL [facility] Comment:NORMAL 200-900 PG/ML INDETERMINATE 160-199 PG/ML DEFICIENT < 160 PG/ML Folate 5.9 > or = 4.0 ng/mL [facility] Comment:Reference Values:> o r = [...] BLOOD ORDERABLES Final Result Performing Organization Address [facility] Co de Phone Number [facility] [address] [place] [address] [phone] * Hepatitis Panel, General (04/12/2025 8:44 AM EDT) Hepatitis A IgM Nonreactive Nonreactive [facility] Comment:IgM antibodies to PRINCE V not detected; does not exclude earlyacute or recovered HAV infection. ~Hepatitis B Surface Antibody NONREACTIVE Nonreactive [facility] Comment:Nonreactive: < 8.00 mIU/mL Hepatitis B Core Antibody Nonreactive Nonreactive [facility] Hepatitis C Antibody Nonreactive Nonreactive [facility] Comment:Antibodies to HCV no t detected; does not exclude early acuteHCV infection. Hepatitis B Surface Ag Negative Negative [facility] Blood Venous blood specimen / Unknown 04/12/2025 8:44 AM EDT 04/12/2025 2:38 PM EDT us Cruz Gerardo MD LAB BLOOD ORDERABLES Final Result Performing Organization Address [facility] de Phone Number [facility] [address] [place] [phone] * (ABNORMAL) Sed Rate by Modified Joséren (04/12/2025 8:44 AM EDT) Erythrocyte Sedimentation Rate 16(H) 0 - 15 MM/HR [facility] Comment:Patients with polycy themia and many hemoglobin abnormalitiesmay have depressed sed rates whereas patients with anemiamay have elevated sed rates. Blood Venous blood specimen / Unknown 04/12/2025 8:44 AM EDT 04/12/2025 2:38 PM EDT us Cruz Gerardo MD LAB BLOOD ORDERABLES Final Result Performing Organization Address [facility] Co de Phone Number [facility] [address] [place] [phone] [phone] * Rheumatoid Factor (04/12/2025 8:44 AM EDT) Pathologist [facility] Rheumatoid Factor <13.0 <15.0 IU/mL [facility] Blood Venous blood specimen / Unknown 04/12/2025 8:44 AM EDT 04/12/2025 2:38 PM EDT Cruz Gerardo MD LAB BLOOD ORDERABLES Final Result Performing Organization Address [facility] de Phone Number [facility] [address] [place] [phone] * (ABNORMAL) C-reactive Protein (04/12/2025 8:44 AM EDT) [facility] C Reactive Protein 0.55(H) < or = 0.50 mg/dL [facility] Blood Venous blood specimen / Unknown 04/12/2025 8:44 AM EDT 04/12/2025 2:38 PM EDT Cruz Gerardo MD LAB BLOOD ORDERABLES Final Result Performing Organization Address [facility] Phone Number [facility] [address] [place] [phone] * (ABNORMAL) TALIA Screen,IFA, with Reflex to Titer and Pattern (04/12/2025 8:44 AM EDT) Pathologist [facility] Anti Nuclear Antibody Screen POSITIV E(A) NEGATIVE [facility] Comment:TALIA IFA is a first l ine screen for detecting thepresence of up to approximately 150 autoantibodies invarious autoimmune diseases. A positive TALIA IFA resultis suggestive of autoimmune disease and reflexes totiter and pattern. Further laboratory testing may beconsidered if clinically indicated.For additional information, please refer tohttp://education.Tripnary/faq/FCI504(This link is being provided for informational/educational purposes only.) TALIA Titer 1:80(A) titer [facility] Comment:A low level TALIA tite r may be present in pre-clinicalautoimmune diseases and normal individuals. Reference Range <1:40 Negative 1:40-1:80 Low Antibody Level >1:80 Elevated Antibody Level TALIA Pattern Nuclear , Homogen eous(A) [facility] Comment:Homogeneous pattern is associated with systemic lupuserythematosus (SLE), drug-induced lupus and juvenileidiopathic arthritis.AC-1: HomogeneousInternational Consensus on TALIA Patterns(https://doi.org/10.1515/fown-0982-4641)THIS TEST WAS PERFORMED AT:[address] [place] [phone] KLINE MD TALIA Titer 2 TNP [facility] TALIA Pattern 2 TNP [facility] TALIA TITER 3 [facility] TALIA PATTERN 3 [facility] Blood Venous blood specimen / Unknown 04/12/2025 8:44 AM EDT 04/12/2025 2:38 PM EDT Cruz Gerardo MD LAB BLOOD ORDERABLES Final Result [facility] [address] [place] [phone] from Last 3 Months Insurance [facility] C3 DENT[facility] [id number] Care Teams Emergency Services Professional Relationship Specialty Start Date End Date Cruz Gerardo MD [address] [place] [address] LIDIA Perez [phone] PCP - General Internal Medicine 09/03/24
--- OUTSIDE RECORDS SUMMARY | 2025-06-18 11:48 | XMS_ITS | Clinical Summary ---
Author Organization [address] [facility] Address [address] [place] [phone] Phone Care Team Providers Care Stroke Belt Sander Operator Name Role Phone Cruz Gerardo MD Primary Care Provider [phone] Social History Tobacco Use Types Packs/Day Years Used Date Smoking Tobacco: Never Smokeless Tobacco: Never Alcohol Use Standard Drinks/Week Comments Never 0 (1 standard drink = 0.6 oz pur e alcohol) Sex and Gender Information Value Date Recorded Sex Assigned at Not on file Legal Sex Male 3:49 AM EST Gender Identity Not on file Sexual Orientation Not on file Last Filed Vital Signs Vital Sign Reading [...] AM EST Office Visit Orthopedic Surgery - [place] [address] [phone] Piero Banerjee DPM [address] [phone] Health Maintenance Due Date Last Done Comments [...] to complete this topic Insurance [place] Care Teams Stroke Belt Sander Operator Relationship Specialty Start Date End Date Cruz Gerardo MD [address] [place] [phone] PCP - General Internal Medicine 04/10/25
--- OUTSIDE RECORDS SUMMARY | 2025-06-18 11:48 | XMS_ITS | Encounter Summary ---
Author Organization [employer] [facility] Address [address] [facility] 7[address] [place] [address] Care Team Providers Care Generator Repairer Name Role Phone Libertad Palafox MD Primary Care Provider [phone] Cruz Gerardo MD Primary Care Provider [phone] Encounter Details Date Type Department Care Team (Latest Contact Info) Description 12/18/2021 Abstract [facility] CONVERSIONS Dental, Provider, DDS Social History [...] on filedocumented in this encounter Care Teams Generator Repairer Relationship Specialty Start Date End Date Libertad Palafox MD [address] [place] [address] PCP - General Family Medicine 10/09/21 09/02/24 Cruz Gerardo MD [address] [place] [address] PCP - General Internal Medicine 09/03/24 documented as of this encounter
--- OUTSIDE RECORDS SUMMARY | 2025-06-18 11:48 | XMS_ITS | Encounter Summary ---
Author Organization [employer] Address [address] [place] [address] Care Team Providers Care Arboriculture Instructor Name Role Phone Cruz Gerardo MD Primary Care Provider [phone] Encounter Details Date Type Department Care Team ([facility] st Contact Info) Description 05/13/2025 Orders Only [facility] [address] [place], [place] [phone] Cruz Gerardo MD [address] [place] [address] Social History Tobacco Use Types Packs/Day Years [...] documented as of this encounter Care Teams Arboriculture Instructor Relationship Specialty Start Date End Date Cruz Gerardo MD [address] [place] [phone] PCP - General Internal Medicine 09/03/24 documented as of this encounter
--- OUTSIDE RECORDS SUMMARY | 2025-06-18 11:48 | XMS_ITS | Encounter Summary ---
Author Organization [employer] Address [address] [place] [address] [address] [address] Care Team Providers Care Major League Baseball Player Name Role Phone Cruz Gerardo MD Primary Care Provider [phone] Reason for Referral * Consultation (Routine) - Authorized Specialty Diagnoses / Procedures Referred By Contwhitney t Referred To Contact Rheumatology Diagnoses Pain in other joint Cruz Gerardo MD [address] [place] [address] Phone: tel: fax: [facility] [address] [place] [address] Phone: tel: fax: Referral ID Status Reason Start Date Expiration Date Visits Requested Visits Authorized [id number] Authorized Specialty Services Required 2026 1 1 Encounter Details Date Type Department Care Team ([facility] st Contact Info) Description 04/12/2025 Orders Only [facility] [address] [place] [address] Cruz Gerardo MD [address] [place] [address] Pain in other joint (Primary Dx) Social [...] documented as of this encounter Care Teams Major League Baseball Player Relationship Specialty Start Date End Date Cruz Gerardo MD [address] [place] [phone] PCP - General Internal Medicine 09/03/24 documented as of this encounter
== END 2025-06-18 10:52 | disposition home or self-care (01) ==
LOC: HO.HGS 10:32
PROVIDERS: PCP Internal Medicine
DX: Z09 Encounter for follow-up examination after completed treatment for conditions other than malignant neoplasm (principal)
CPT/HCPCS: 99214

== ENCOUNTER → 2025-06-18 10:31 | Outpatient (BNVA) | payer MEDICAID, SELFPAY | PROVIDERS: PCP Internal Medicine | DX: Z09 Encounter for follow-up examination after completed treatment for conditions other than malignant neoplasm (principal) | CPT/HCPCS: 99212 ==